=== PATIENT | male | born 1980 | race Caucasian/White ===

== ENCOUNTER 2017-10-21 13:52 | Inpatient (IN) | payer SELFPAY ==
[~2017-10-21] VITALS: Ht 188 cm; Wt 111.0 kg
[~2017-10-21 13:52] MED LIST: BIOFREEZE TOPICAL; CYCL-36 PO; DARV PO; IBUP100S PO; LORT7.5T3 PO; MELO15TA2 PO
[2017-10-21 14:30] VITALS: BP 126/76; PULSE 88; RESP 15; TEMP 98.8; O2SAT 98
--- NOTE | 2017-10-21 15:05 | RADRPT ---
EXAM DATE/TIME: 10/21/2017 14:48 [facility] COMPARISON: No previous studies available for comparison. INDICATIONS : Patient states left hand redness, swelling, and warm to the touch. MEDICAL HISTORY : None. SURGICAL HISTORY : None. ENCOUNTER: Initial ACUITY: 3 days PAIN SCORE: 8/10 LOCATION: Left Forearm FINDINGS: Two view examination of the left forearm demonstrates no evidence of fracture or dislocation. Bony m ineralization is normal. The soft tissue structures are intact. CONCLUSION: Unremarkable examination of the left forearm. Maximus Ulloa Jr., MD on October 21, 2017 at 15:01 Board Certified Radiologist. This report was verified electronically.
--- NOTE | 2017-10-21 15:06 | RADRPT ---
EXAM DATE/TIME: 10/21/2017 14:50 [facility] COMPARISON: No previous studies available for comparison. INDICATIONS : Patient states left arm swelling, redness, and warm to the touch. MEDICAL HISTORY : None. SURGICAL HISTORY : None. ENCOUNTER: Initial ACUITY: 3 days PAIN SCORE: 8/10 LOCATION: Left Hand FINDINGS: Three view examination of the left hand demonstrates no dislocation or fracture. Dorsal soft tissue s welling. No radiopaque foreign body. The carpal bones appear intact. The interphalangeal and metaca rpophalangeal joints are intact. Bony mineralization is normal. CONCLUSION: 1. Dorsal soft tissue swelling. Maximus Ulloa Jr., MD on October 21, 2017 at 15:04 Board Certified Radiologist. This report was verified electronically.
--- NOTE | 2017-10-21 19:38 | PD ---
HPI Chief Complaint: Injury Time Seen by Provider: 19:03 Travel History International Travel<30 days: No Contact w/Intl Traveler<30days: No Traveled to known affect area: No History of Present Illness HPI 37-year-old white male presents emergency department with complaints of left forearm and hand swelling and pain. The patient alleges a trip and fall on Saturday. He states that he had hyperflexed his wrist during the fall. It has become increasingly painful, red and swollen. Patient denies any fever or chills. He denies any IV drug abuse. He denies any numbness or tingling. Up- to-date with immunizations. 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 PFSH Past Medical History Narrative Medical Left biceps tear Blood Disorders: No Cancer: No Cardiovascular Problems: No Diminished Hearing: No Endocrine: No Gastrointestinal Disorders: No Genitourinary: No Immune Disorder: No Implanted Vascular Access Dvce: No Musculoskeletal: No Neurologic: No Psychiatric: No Reproductive: No Respiratory: No Tetanus Vaccination: < 5 Years Past Surgical History Narrative Surgical Reconnection left bicep Abdominal Surgery: No AICD: No Arteriovenous Shunt: No Cardiac Surgery: No Ear Surgery: No Endocrine Surgery: No Eye Surgery: No Genitourinary Surgery: No Gynecologic Surgery: No Insulin Pump: No Joint Replacement: No Neurologic Surgery: No Oral Surgery: No Pacemaker: No Thoracic Surgery: No Other Surgery: No Social History Alcohol Use: Yes (OCC) Tobacco Use: No Substance Use: No Allergies-Medications (Allergen,Severity, Reaction): Coded Allergies: No Known Allergies (Verified Adverse Reaction, Unknown, 10/21/17) Reported Meds & Prescriptions Reported Meds & Active Scripts Active No Active Prescriptions or Reported Medications Review of Systems General / Constitutional: No: Fever Eyes: No: Visual changes HENT: No: Headaches Cardiovascular: No: Chest Pain or Discomfort Respiratory: No: Shortness of Breath Gastrointestinal: No: Abdominal Pain Genitourinary: No: Dysuria Musculoskeletal: Positive: Arthralgias, Limited ROM, Edema, Pain Skin: No Rash Neurologic: No: Weakness Psychiatric: No: Depression Endocrine: No: Polydipsia Hematologic/Lymphatic: No: Easy Bruising Physical Exam Narrative GENERAL: Well-developed, well-nourished in no acute distress. Nontoxic appearing. HEAD: Normocephalic, atraumatic. EYES: Pupils equal round and reactive. Extraocular motions intact. No scleral icterus. No injection or drainage. ENT: TMs clear without erythema. The external auditory canals clear. Nose: clear . Posterior pharynx is pink and moist. No tonsillar edema or exudate. Uvula midline. Airway patent. NECK: Trachea midline.Supple, nontender, moves head freely. No central bony tenderness or spasm. CARDIOVASCULAR: Regular rate and rhythm without murmurs, gallops, or rubs. RESPIRATORY: Clear to auscultation. Breath sounds equal bilaterally. No wheezes , rales, or rhonchi. GASTROINTESTINAL: Abdomen soft, non-tender, nondistended. No hepato-splenomegaly , or palpable masses. No guarding. EXTREMITIES: No clubbing, cyanosis. Examination of left upper extremity reveals moderate swelling from the mid forearm down into the hand. It is red, warm and tender. No fluctuance or pointing. There is no bony tenderness to examination of the hand, wrist, elbow or shoulder. Patient has surgical scar from prior biceps attachment. There is questionable tract rohit in the wrist. BACK: Nontender without deformity or crepitance. No flank tenderness. Data Data Last Documented VS Vital Signs Date Time Temp Pulse Resp B/P (MAP) Pulse Ox O2 Delivery O2 Flow Rate FiO2 10/21/17 14:30 98.8 88 15 126/76 (93) 98 Orders Orders Hand, Complete ([id number]) (10/21/17 ) Forearm (2vws) (10/21/17 ) Complete Blood Count With Diff (10/21/17 19:10) Basic Metabolic Panel (Bmp) (10/21/17 19:10) Blood Culture (10/21/17 19:10) Iv Access Insert/Monitor (10/21/17 19:10) Drug Screen, Random Urine (10/21/17 19:10) Lactic Acid (10/21/17 19:10) Sodium Chlor 0.9% 1000 Ml Inj (Ns 1000 M (10/21/17 21:00) Sodium Chlor 0.9% 1000 Ml Inj (Ns 1000 M (10/21/17 21:00) Vancomycin Inj (Vancomycin Inj) (10/21/17 21:00) Piperacil-Tazo 4.5 Gm Premix (Zosyn 4.5 (10/21/17 21:00) Admit Order (Ed Use Only) (10/21/17 ) Vital Signs (Adult) Q4H (10/21/17 20:54) Diet Npo (10/22/17 Breakfast) Activity Oob With Assistance (10/21/17 20:54) Notify Dr: Other (10/21/17 20:54) Labs Laboratory Tests Test 10/21/17 19:21 White Blood Count 11.2 TH/MM3 Red Blood Count 4.15 MIL/MM3 Hemoglobin 14.7 GM/DL Hematocrit 40.9 % Mean Corpuscular Volume 98.5 FL Mean Corpuscular Hemoglobin 35.3 PG Mean Corpuscular Hemoglobin Concent 35.8 % Red Cell Distribution Width 12.8 % Platelet Count 151 TH/MM3 Mean Platelet Volume 8.0 FL Neutrophils (%) (Auto) 78.9 % Lymphocytes (%) (Auto) 12.2 % Monocytes (%) (Auto) 7.9 % Eosinophils (%) (Auto) 0.6 % Basophils (%) (Auto) 0.4 % Neutrophils # (Auto) 8.9 TH/MM3 Lymphocytes # (Auto) 1.4 TH/MM3 Monocytes # (Auto) 0.9 TH/MM3 Eosinophils # (Auto) 0.1 TH/MM3 Basophils # (Auto) 0.0 TH/MM3 CBC Comment DIFF FINAL Differential Comment Blood Urea Nitrogen 8 MG/DL Creatinine 0.75 MG/DL Random Glucose 124 MG/DL Calcium Level 8.0 MG/DL Sodium Level 137 MEQ/L Potassium Level 3.7 MEQ/L Chloride Level 102 MEQ/L Carbon Dioxide Level 25.8 MEQ/L Anion Gap 9 MEQ/L Estimat Glomerular Filtration Rate 117 ML/MIN Lactic Acid Level 2.1 mmol/L Urine Opiates Screen NEG Urine Barbiturates Screen NEG Urine Amphetamines Screen NEG Urine Benzodiazepines Screen NEG Urine Cocaine Screen NEG Urine Cannabinoids Screen NEG MDM Medical Decision Making Medical Screen Exam Complete: Yes Emergency Medical Condition: Yes Medical Record Reviewed: Yes Interpretation(s) Laboratory Tests Test 10/21/17 19:21 White Blood Count 11.2 TH/MM3 Red Blood Count 4.15 MIL/MM3 Hemoglobin 14.7 GM/DL Hematocrit 40.9 % Mean Corpuscular Volume 98.5 FL Mean Corpuscular Hemoglobin 35.3 PG Mean Corpuscular Hemoglobin Concent 35.8 % Red Cell Distribution Width 12.8 % Platelet Count 151 TH/MM3 Mean Platelet Volume 8.0 FL Neutrophils (%) (Auto) 78.9 % Lymphocytes (%) (Auto) 12.2 % Monocytes (%) (Auto) 7.9 % Eosinophils (%) (Auto) 0.6 % Basophils (%) (Auto) 0.4 % Neutrophils # (Auto) 8.9 TH/MM3 Lymphocytes # (Auto) 1.4 TH/MM3 Monocytes # (Auto) 0.9 TH/MM3 Eosinophils # (Auto) 0.1 TH/MM3 Basophils # (Auto) 0.0 TH/MM3 CBC Comment DIFF FINAL Differential Comment Blood Urea Nitrogen 8 MG/DL Creatinine 0.75 MG/DL Random Glucose 124 MG/DL Calcium Level 8.0 MG/DL Sodium Level 137 MEQ/L Potassium Level 3.7 MEQ/L Chloride Level 102 MEQ/L Carbon Dioxide Level 25.8 MEQ/L Anion Gap 9 MEQ/L Estimat Glomerular Filtration Rate 117 ML/MIN Lactic Acid Level 2.1 mmol/L Urine Opiates Screen NEG Urine Barbiturates Screen NEG Urine Amphetamines Screen NEG Urine Benzodiazepines Screen NEG Urine Cocaine Screen NEG Urine Cannabinoids Screen NEG Differential Diagnosis MDM: High Differential diagnoses: Fracture, sprain, strain, dislocation, contusion, neurovascular injury, IV drug abuse, cellulitis, abscess Narrative Course IV access is obtained. CBC, chemistry, lactic acid, and 2 blood cultures have been ordered. I have asked the patient multiple times regarding potential for IV drug abuse he has adamantly denied this. He contends this is all secondary to a slip and fall. Patient was given vancomycin 20 mg/kg IV, Zosyn 4.5 g IV. 2 L of normal saline bolus. I discussed the clinical findings with the patient. I have advised him that this would require admission to the hospital and IV antibiotics. The patient verbally states understanding and agrees with treatment plan and follow-up. I discussed the case with Dr. Parikh who has agreed to admit the patient. I recommended full admission I do not believe that this patient will be improved significantly enough and 23 hours. This is left forearm and hand cellulitis Sepsis Criteria Sepsis Criteria (SIRS+source): Infect source susp/known Severe Sepsis (+one): Lactate >2 Diagnosis Primary Impression: Left forearm and hand cellulitis Scripts No Active Prescriptions or Reported Meds Condition: Stable Anthony Sandoval Oct 21, 2017 19:38
[2017-10-21 20:08] LABS: AUTOMATED NEUTROPHIL # 8.9 TH/MM3 (1.8-7.7); BASOPHIL % 0.4 % (0.0-2.0); EOSINOPHIL # 0.1 TH/MM3 (0-0.4); EOSINOPHIL % 0.6 % (0.0-4.0); HEMATOCRIT 40.9 % (39.0-51.0); HEMOGLOBIN 14.7 GM/DL (13.0-17.0); LYMPH % 12.2 % (9.0-44.0); LYMPHOCYTE # 1.4 TH/MM3 (1.0-4.8); MEAN CELL VOLUME 98.5 FL (80.0-100.0); MEAN CORPUSCULAR HEMOGLOBIN 35.3 PG (27.0-34.0); MEAN CORPUSCULAR HGB CONC 35.8 % (32.0-36.0); MONO % 7.9 % (0.0-8.0); MONOCYTE # 0.9 TH/MM3 (0-0.9); NEUT % 78.9 % (16.0-70.0); PLATELET COUNT 151 TH/MM3 (150-450); RED BLOOD COUNT 4.15 MIL/MM3 (4.50-5.90); RED CELL DISTRIBUTION WIDTH 12.8 % (11.6-17.2); WHITE BLOOD COUNT 11.2 TH/MM3 (4.0-11.0)
[2017-10-21 20:30] LABS: BICARBONATE 25.8 MEQ/L (21.0-32.0); CREATININE 0.75 MG/DL (0.60-1.30)
[2017-10-21] MEDS ORDERED: LACTULOSE SYRUP 20 GM/30 ML CUP PO PRN (21:00)
[2017-10-21] MEDS ORDERED: BISACODYL 10 MG SUPP RECTAL PRN (21:00)
[2017-10-21] MEDS ORDERED: SODIUM CHLORID 0.9% IV ONE (21:00)
[2017-10-21] MEDS ORDERED: ACETAMINOPHEN 325 MG TAB PO PRN (21:00)
[2017-10-21] MEDS ORDERED: NALOXONE HCL 0.4 MG/ML AMP IV PUSH PRN (21:00)
[2017-10-21] MEDS ORDERED: VANCOMYCIN IV ONE (21:00)
[2017-10-21] MEDS ORDERED: SODIUM CHLOR 0.9% 1000 ML INJ 1,000 ML IV ONE ×2 (21:00)
[2017-10-21] MEDS ORDERED: Vancomycin Consult Pharmacy 1 EA OTHER SCH (21:00)
[2017-10-21] MEDS ORDERED: SENNOSIDES 8.6 MG TAB PO PRN (21:00)
[2017-10-21] MEDS ORDERED: ONDANSETRON HCL 4 MG/2 ML VIAL IVP PRN (21:00)
[2017-10-21] MEDS ORDERED: SODIUM CHLORIDE 0.9% FLUSH 10 ML FLUSH IV FLUSH PRN (21:00)
[2017-10-21] MEDS ORDERED: PIPERACIL-TAZO 4.5 GM PREMIX 100 ML IV ONE (21:00)
[2017-10-21] MEDS ORDERED: MAGNESIUM HYDROXIDE SUSP 30 ML CUP PO PRN (21:00)
[2017-10-21 21:16] VITALS: BP 136/67; PULSE 90; RESP 16; O2SAT 99
[2017-10-21 21:21] VITALS: BP 142/69; PULSE 96; RESP 16; TEMP 99; O2SAT 100
[2017-10-21] MEDS: DOCUSATE SODIUM 50 MG/SENNA 8.6 MG TAB PO SCH (22:15)
[2017-10-21] MEDS: SODIUM CHLORIDE 0.9% FLUSH 10 ML FLUSH IV FLUSH SCH (22:15)
[2017-10-21] MEDS: SODIUM CHLOR 0.9% 1000 ML INJ 1,000 ML IV SCH (22:16)
[2017-10-22] MEDS: PIPERACIL-TAZO 3.375 GM PREMIX 50 ML IV SCH ×4 (02:05→20:22)
--- NOTE | 2017-10-22 03:14 | HHI.HP ---
[facility] No Primary Care Physician Admission Diagnosis Left forearm and hand cellulitis Diagnoses: Travel History International Travel<30 Days: No Contact w/Intl Traveler <30 Da: No Traveled to Known Affected Are: No History of Present Illness 37-year-old male with no significant past medical history presents to the emergency department for evaluation of left handed pain and swelling. The patient reports that the swelling and redness began around his left wrist on Saturday and has been progressively worsening since that time. He is able to flex all 5 digits but has difficulty bending at the wrist secondary to swelling and pain. He denies any fever/chills. Denies chest pain or shortness of breath. No nausea/vomiting/diarrhea. No cough or congestion. Patient denies any recent trauma to the area or IV drug use. Review of Systems Except as stated in HPI: all other systems reviewed are Neg Past Family Social History Past Medical History None Past Surgical History Left biceps repair Reported Medications Reported Meds & Active Scripts Active No Active Prescriptions or Reported Medications Allergies: Coded Allergies: No Known Allergies (Verified Allergy, Unknown, 10/21/17) Family History Negative for CAD/DM Social History Occasional tobacco. Occasional alcohol. Denies all illicit drugs. Physical Exam Vital Signs Vital Signs Date Time Temp Pulse Resp B/P (MAP) Pulse Ox O2 Delivery O2 Flow Rate FiO2 10/21/17 21:21 99.0 96 16 142/69 (93) 100 10/21/17 21:16 90 16 136/67 (90) 99 Room Air 10/21/17 14:30 98.8 88 15 126/76 (93) 98 Physical Exam GENERAL: male lying in bed SKIN: Erythema and edema that extends from the fingers of the left hand to the elbow. No associated fluctuance or induration. No areas of drainage. HEAD: Atraumatic. Normocephalic. No temporal or scalp tenderness. EYES: Pupils equal round and reactive. Extraocular motions intact. No scleral icterus. No injection or drainage. ENT: Nose without bleeding, purulent drainage or septal hematoma. Throat without erythema, tonsillar hypertrophy or exudate. Uvula midline. Airway patent. NECK: Trachea midline. No JVD or lymphadenopathy. Supple, nontender, no meningeal signs. CARDIOVASCULAR: Regular rate and rhythm without murmurs, gallops, or rubs. RESPIRATORY: Clear to auscultation. Breath sounds equal bilaterally. No wheezes , rales, or rhonchi. GASTROINTESTINAL: Abdomen soft, non-tender, nondistended. No hepato-splenomegaly , or palpable masses. No guarding. MUSCULOSKELETAL: Extremities without clubbing, cyanosis, or edema. No joint tenderness, effusion, or edema noted. No calf tenderness. NEUROLOGICAL: Awake and alert. Cranial nerves II through XII intact. Motor and sensory grossly within normal limits. Normal speech. Laboratory Laboratory Tests Test 10/21/17 19:21 White Blood Count 11.2 Red Blood Count 4.15 Hemoglobin 14.7 Hematocrit 40.9 Mean Corpuscular Volume 98.5 Mean Corpuscular Hemoglobin 35.3 Mean Corpuscular Hemoglobin Concent 35.8 Red Cell Distribution Width 12.8 Platelet Count 151 Mean Platelet Volume 8.0 Neutrophils (%) (Auto) 78.9 Lymphocytes (%) (Auto) 12.2 Monocytes (%) (Auto) 7.9 Eosinophils (%) (Auto) 0.6 Basophils (%) (Auto) 0.4 Neutrophils # (Auto) 8.9 Lymphocytes # (Auto) 1.4 Monocytes # (Auto) 0.9 Eosinophils # (Auto) 0.1 Basophils # (Auto) 0.0 CBC Comment DIFF FINAL Differential Comment Blood Urea Nitrogen 8 Creatinine 0.75 Random Glucose 124 Calcium Level 8.0 Sodium Level 137 Potassium Level 3.7 Chloride Level 102 Carbon Dioxide Level 25.8 Anion Gap 9 Estimat Glomerular Filtration Rate 117 Lactic Acid Level 2.1 Urine Opiates Screen NEG Urine Barbiturates Screen NEG Urine Amphetamines Screen NEG Urine Benzodiazepines Screen NEG Urine Cocaine Screen NEG Urine Cannabinoids Screen NEG Date/Time Source Procedure Growth Status 10/21/17 19:21 Blood Peripheral Aerobic Blood Culture Pending Received 10/21/17 19:21 Blood Peripheral Anaerobic Blood Culture Pending Received Result Diagram: 10/21/17192010/21/171920 Caprini VTE Risk Assessment Caprini VTE Risk Assessment: No/Low Risk (score <= 1) Caprini Risk Assessment Model Point Value = 1 Point Value = 2 Point Value = 3 Point Value = 5 Age 41-60 Minor surgery BMI > 25 kg/m2 Swollen legs Varicose veins or History of unexplained or recurrent spontaneous Oral contraceptives or hormone replacement Sepsis (< 1 month) Serious lung disease, including pneumonia (< 1 month) Abnormal pulmonary function Acute myocardial infarction Congestive heart failure (< 1 month) History of inflammatory bowel disease Medical patient at bed rest Age 61-74 Arthroscopic surgery Major open surgery (> 45 min) Laparoscopic surgery (> 45 min) Malignancy Confined to bed (> 72 hours) Immobilizing plaster cast Central venous access Age >= 75 History of VTE Family history of VTE Factor V Leiden Prothrombin [id number] Lupus anticoagulant Anticardiolipin antibodies Elevated serum homocysteine Heparin-induced thrombocytopenia Other congenital or acquired thrombophilia Stroke (< 1 month) Elective arthroplasty Hip, pelvis, or leg fracture Acute spinal cord injury (< 1 month) Prophylaxis Regimen Total Risk Factor Score Risk Level Prophylaxis Regimen 0-1 Low Early ambulation 2 Moderate Order ONE of the following: *Sequential Compression Device (SCD) *Heparin 5000 units SQ BID 3-4 Higher Order ONE of the following medications: *Heparin 5000 units SQ TID *Enoxaparin/Lovenox 40 mg SQ daily (WT < 150 kg, CrCl > 30 mL/min) *Enoxaparin/Lovenox 30 mg SQ daily (WT < 150 kg, CrCl > 10-29 mL/min) *Enoxaparin/Lovenox 30 mg SQ BID (WT < 150 kg, CrCl > 30 mL/min) AND/OR *Sequential Compression Device (SCD) 5 or more Highest Order ONE of the following medications: *Heparin 5000 units SQ TID (Preferred with Epidurals) *Enoxaparin/Lovenox 40 mg SQ daily (WT < 150 kg, CrCl > 30 mL/min) *Enoxaparin/Lovenox 30 mg SQ daily (WT < 150 kg, CrCl > 10-29 mL/min) *Enoxaparin/Lovenox 30 mg SQ BID (WT < 150 kg, CrCl > 30 mL/min) AND *Sequential Compression Device (SCD) Assessment and Plan Assessment and Plan Assessment/plan: 1. Left hand/forearm cellulitis X-ray of the left hand and forearm without acute process Lactic acid elevated at 2.1, repeat pending Cannot exclude tenosynovitis, MRI pending Vancomycin/Zosyn IV fluid hydration Blood cultures pending Monitor for signs of sepsis FEN Regular diet Electrolytes: Monitor and replete when necessary NS at 125 cc/hr SCDs Physician Certification 2 Midnight Certification Type: Admission for Inpatient Services Order for Inpatient Services The services are ordered in accordance with Medicare regulations or non- Medicare payer requirements, as applicable. In the case of services not specified as inpatient-only, they are appropriately provided as inpatient services in accordance with the 2-midnight benchmark. Estimated LOS (days): 2 2 days is the estimated time the patient will need to remain in the hospital, assuming treatment plan goals are met and no additional complications. Post-Hospital Plan: Not yet determined Radha Parikh MD Oct 22, 2017 03:14
[2017-10-22 04:01] LABS: AUTOMATED NEUTROPHIL # 6.9 TH/MM3 (1.8-7.7); BASOPHIL % 0.2 % (0.0-2.0); EOSINOPHIL # 0.1 TH/MM3 (0-0.4); EOSINOPHIL % 1.1 % (0.0-4.0); HEMATOCRIT 37.5 % (39.0-51.0); HEMOGLOBIN 13.2 GM/DL (13.0-17.0); LYMPH % 16.9 % (9.0-44.0); LYMPHOCYTE # 1.6 TH/MM3 (1.0-4.8); MEAN CELL VOLUME 99.2 FL (80.0-100.0); MEAN CORPUSCULAR HEMOGLOBIN 34.9 PG (27.0-34.0); MEAN CORPUSCULAR HGB CONC 35.2 % (32.0-36.0); MEAN PLATELET VOLUME 7.9 FL (7.0-11.0); MONO % 8.3 % (0.0-8.0); MONOCYTE # 0.8 TH/MM3 (0-0.9); NEUT % 73.5 % (16.0-70.0); PLATELET COUNT 147 TH/MM3 (150-450); RED BLOOD COUNT 3.78 MIL/MM3 (4.50-5.90); RED CELL DISTRIBUTION WIDTH 12.8 % (11.6-17.2); WHITE BLOOD COUNT 9.4 TH/MM3 (4.0-11.0)
[2017-10-22 04:17] LABS: BICARBONATE 26.3 MEQ/L (21.0-32.0); CALCIUM 7.3 MG/DL (8.5-10.1); CREATININE 0.69 MG/DL (0.60-1.30)
[2017-10-22 04:33] LABS: CALCIUM-PROTEIN CORRECTED 7.9 MG/DL (8.5-10.1)
[2017-10-22 04:55] VITALS: BP 124/70; PULSE 97; RESP 16; TEMP 99.3; O2SAT 97
[2017-10-22] MEDS: SODIUM CHLOR 0.9% 1000 ML INJ 1,000 ML IV SCH ×3 (04:55→21:22)
[2017-10-22 08:00] VITALS: BP 108/62; PULSE 63; RESP 16; TEMP 98.4; O2SAT 97
[2017-10-22] MEDS ORDERED: GADODIAMIDE PF 287 MG/ML 20 ML VIAL (for RAD MRI) IVCONTRAST ONE (08:39)
[2017-10-22] MEDS: SODIUM CHLORIDE 0.9% FLUSH 10 ML FLUSH IV FLUSH SCH ×2 (08:58→20:22)
[2017-10-22] MEDS: DOCUSATE SODIUM 50 MG/SENNA 8.6 MG TAB PO SCH ×2 (08:58→20:22)
[2017-10-22] MEDS ORDERED: VANCOMYCIN INJ 1,250 MG in SODIUM CHLOR 0.9% 250 ML INJ 250 ML IV SCH (09:00)
--- NOTE | 2017-10-22 09:18 | RADRPT ---
EXAM DATE/TIME: 10/22/2017 08:05 [facility] COMPARISON: HAND LEFT COMPLETE ([id number]), October 21, 2017, 14:50. INDICATIONS : Cellulitis. CONTRAST: 20 cc Omniscan (gadodiamide) IV MEDICAL HISTORY : None. SURGICAL HISTORY : None. ENCOUNTER: Initial ACUITY: 3 day PAIN SCORE: 5/10 LOCATION: Left hand TECHNIQUE: Multiplanar, multisequence MRI examination was performed without contrast and after the intravenous a dministration of gadolinium. FINDINGS: BONE/CARTILAGE: Bone marrow signal is homogeneous. Articular cartilage signal is within normal limits. A few tiny sub chondral cystsare seen in the distal second and third metacarpals. TENDONS: All of the visualized tendons are intact. MISCELLANEOUS: There is diffuse nonspecific soft tissue swelling and edema predominantly along the dorsum of the rees d. There is a complex fluid collection along the dorsum at the level of the rest measuring 2.6 x 1.5 cm suggestive of soft tissue abscess. POST-CONTRAST: There is enhancement in the subcutaneous soft tissues along the dorsum of the hand characteristic of an inflammatory process such as cellulitis. CONCLUSION: 1. Diffuse nonspecific soft tissue swelling and edema are gone along the dorsum of the hand and wrist . This is characteristic of prominent cellulitis. There is a complex fluid collection measuring 2.6 x 1.5 cm on the dorsum of the wrist level. This is suggestive of a soft tissue abscess. 2. There is normal signal within the bony structures. There is no evidence to suggest osteomyelitis. Jim Eduardo MD on October 22, 2017 at 9:11 Board Certified Radiologist. This report was verified electronically.
[2017-10-22] MEDS: VANCOMYCIN INJ 2,000 MG in SODIUM CHLORID 0.9% 500 ML INJ 500 ML IV SCH ×2 (09:29→21:21)
[2017-10-22 12:00] VITALS: BP 112/60; PULSE 76; RESP 16; TEMP 99; O2SAT 97
--- NOTE | 2017-10-22 13:24 | HHI.PR ---
Subjective Remarks Follow up for left hand cellulitis/abscess. The patient reports minimal improvement of left hand/wrist erythema, edema, and pain overnight. Denies fevers/chills. Again denies any IVDU. 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 Denies any other medical complaints at this time including no chest pain, palpitations, shortness of breath, abdominal or urinary complaints. Objective Vitals Vital Signs Date Time Temp Pulse Resp B/P (MAP) Pulse Ox O2 Delivery O2 Flow Rate FiO2 10/22/17 12:00 99.0 76 16 112/60 (77) 97 10/22/17 08:00 98.4 63 16 108/62 (77) 97 10/22/17 04:55 99.3 97 16 124/70 (88) 97 10/21/17 21:21 99.0 96 16 142/69 (93) 100 10/21/17 21:16 90 16 136/67 (90) 99 Room Air 10/21/17 14:30 98.8 88 15 126/76 (93) 98 Result Diagram: 10/22/17 0344 10/22/17 0344 Imaging Last Impressions Hand MRI 10/22/17 0000 Signed Impressions: Service Date/Time: Sunday, October 22, 2017 08:05 - CONCLUSION: 1. Diffuse nonspecific soft tissue swelling and edema are gone along the dorsum of the hand and wrist. This is characteristic of prominent cellulitis. There is a complex fluid collection measuring 2.6 x 1.5 cm on the dorsum of the wrist level. This is suggestive of a soft tissue abscess. 2. There is normal signal within the bony structures. There is no evidence to suggest osteomyelitis. Jim Eduardo MD Radius/Ulna X-Ray 10/21/17 0000 Signed Impressions: Service Date/Time: Saturday, October 21, 2017 14:48 - CONCLUSION: Unremarkable examination of the left forearm. Maximus Ulloa Jr., MD Hand X-Ray 10/21/17 0000 Signed Impressions: Service Date/Time: Saturday, October 21, 2017 14:50 - CONCLUSION: 1. Dorsal soft tissue swelling. Maximus Ulloa Jr., MD Objective Remarks GENERAL: Well-nourished, well-developed middle aged male patient in [facility]. SKIN: Warm and dry. Left dorsal hand/wrist with significant edema/erythema/ warmth that extends into the proximal forearm. HEENT: Normocephalic. Atraumatic.Pupils equal and round. Mucous membranes pink and moist. CARDIOVASCULAR: Regular rate and rhythm. S1, S2 noted. No murmur appreciated. RESPIRATORY: No accessory muscle use. Clear to auscultation. Breath sounds equal bilaterally. GASTROINTESTINAL: Abdomen soft, non-tender, nondistended. Normoactive bowel sounds x4. MUSCULOSKELETAL: No obvious deformities. Left hand/wrist as above. Limited ROM of left wrist secondary to edema/pain. NEUROLOGICAL: Awake and alert. No obvious cranial nerve deficits. Motor grossly within normal limits. Normal speech. PSYCHIATRIC: Appropriate mood and affect; insight and judgment normal. Medications and IVs Current Medications Medications (Trade) Dose Ordered Sig/Hina Route Start Time Stop Time Status Last Admin Piperacillin Sod/ Tazobactam Sod 50 ml @ 100 mls/hr Q6H IV 10/22/17 03:00 10/22/17 14:03 Pharmacy Profile Note 0 ml @ 0 mls/hr UNSCH OTHER 10/21/17 21:00 Sodium Chloride 1,000 ml @ 125 mls/hr Q8H IV 10/21/17 20:55 10/22/17 14:02 (NS Flush) 2 ml UNSCH PRN IV FLUSH 10/21/17 21:00 (NS Flush) 2 ml BID IV FLUSH 10/21/17 21:00 10/21/17 22:15 (Tylenol) 650 mg Q4H PRN PO 10/21/17 21:00 (Zofran Inj) 4 mg Q6H PRN IVP 10/21/17 21:00 (Narcan Inj) 0.4 mg UNSCH PRN IV PUSH 10/21/17 21:00 (Carmen-Colace) 1 tab BID PO 10/21/17 21:00 10/21/17 22:15 (Milk Of Magnesia Liq) 30 ml Q12H PRN PO 10/21/17 21:00 (Senokot) 17.2 mg Q12H PRN PO 10/21/17 21:00 (Dulcolax Supp) 10 mg DAILY PRN RECTAL 10/21/17 21:00 (Lactulose Liq) 30 ml DAILY PRN PO 10/21/17 21:00 Vancomycin HCl 2000 mg/Sodium Chloride 520 ml @ 250 mls/hr Q12H IV 10/22/17 10:00 10/22/17 09:29 Miscellaneous Information SPECIFIC LAB TO BE SUZANNE... ONCE ONCE .XX 10/23/17 09:45 10/23/17 09:46 A/P Problem List: (1) Abscess of left hand ICD Code: L02.512 - Cutaneous abscess of left hand Assessment and Plan 37-year-old male with no significant past medical history presents to the emergency department for evaluation of left handed pain and swelling. Left Hand/Wrist Cellulitis with Abscess: Left hand/forearm xrays remarkable for dorsal soft tissue. LUE MRI showed diffuse soft tissue edema along dorsal hand/ wrist; complex fluid collection 2.6x1.5cm at dorsal wrist suggestive of soft tissue abscess; no evidence of osteomyelitis. WBC 11.2K, lactate 2.1. -Blood culture with NGTD -Continue antibiotics with IV Vanco/Zosyn -Give IVF hydration -Pain control with [place] prn, IV morphine prn breakthrough pain -[employer] consult to elevate LUE with IV pole/sling -Keep NPO for now -Consult hand surgery DVT Prophylaxis: teds/SCDs; avoid chemoprophylaxis until evaluated by hand surgeon Discharge Planning Admit to inpatient. Hand surgery consultation pending, likely needs I&D. Carley Lama PA-C Oct 22, 2017 1:24 pm
[2017-10-22 16:00] VITALS: BP 130/73; PULSE 66; RESP 18; TEMP 99.4; O2SAT 98
[2017-10-22] MEDS ORDERED: MORPHINE SULFATE 2 MG/ML INJ IV PUSH PRN (16:00)
[2017-10-22] MEDS ORDERED: LACTATED RINGER'S 1000 ML IV PRN (16:00)
[2017-10-22] MEDS ORDERED: SODIUM CHLORID 0.9% 500 ML IV PRN (16:00)
[2017-10-22] MEDS ORDERED: ACETAMINOPHEN 325 MG TAB PO PRN (16:00)
[2017-10-22] MEDS ORDERED: METOPROLOL TARTRATE 25 MG TAB PO PRN (16:00)
[2017-10-22] MEDS ORDERED: CHLORHEXIDINE GLUCONATE 2 % 1 PACK (2 CLOTHS) TOPICAL PRN (16:00)
[2017-10-22] MEDS ORDERED: INSULIN HUMAN REGULAR 1,000 UNITS/10 ML VIAL SQ PRN (16:00)
[2017-10-22] MEDS ORDERED: POVIDONE IODINE 5% (ANTISEPSIS KIT) 4 APPLICATIONS EACH NARE PRN (16:00)
[2017-10-22 19:58] VITALS: BP 145/79; PULSE 60; RESP 16; TEMP 98.7; O2SAT 96
[2017-10-22] MEDS: ACETAMINOPHEN/HYDROcodone 325 MG/5 MG TAB PO PRN (20:21)
--- NOTE | 2017-10-22 21:49 | PD.ORT.PN ---
Objective Vitals Vital Signs Date Time Temp Pulse Resp B/P (MAP) Pulse Ox O2 Delivery O2 Flow Rate FiO2 10/22/17 19:58 98.7 60 16 145/79 (101) 96 10/22/17 16:00 99.4 66 18 130/73 (92) 98 10/22/17 12:00 99.0 76 16 112/60 (77) 97 10/22/17 08:00 98.4 63 16 108/62 (77) 97 10/22/17 04:55 99.3 97 16 124/70 (88) 97 I/O 10/21/17 10/21/17 10/21/17 10/22/17 10/22/17 10/22/17 07:00 15:00 23:00 07:00 15:00 23:00 Intake Total 240 ml Balance 240 ml Intake Oral 240 ml # Voids 4 # Bowel Movements 1 Result Diagram: 10/22/17 0344 10/22/17 0344 Imaging Last 24 hours Impressions Hand MRI 10/22/17 0000 Signed Impressions: Service Date/Time: Sunday, October 22, 2017 08:05 - CONCLUSION: 1. Diffuse nonspecific soft tissue swelling and edema are gone along the dorsum of the hand and wrist. This is characteristic of prominent cellulitis. There is a complex fluid collection measuring 2.6 x 1.5 cm on the dorsum of the wrist level. This is suggestive of a soft tissue abscess. 2. There is normal signal within the bony structures. There is no evidence to suggest osteomyelitis. Jim Eduardo MD Assessment & Plan Assessment and Plan Please see full dictated consult note. Patient scheduled for OR tonight 10/22 but currently still awaiting OR time and informed by OR case may have to be delayed until tomorrow. Will continue to follow. Recommend continued IV Ab, elevation, and incision and drainage left wrist Rashida Bennett MD Oct 22, 2017 21:49
--- NOTE | 2017-10-22 22:03 | MB ---
cc: Rashida Bennett MD DATE OF CONSULT: 10/22/2017 REASON FOR CONSULTATION: Swelling, left wrist. HISTORY OF PRESENT ILLNESS: Mr. Block is a 37-year-old right hand dominant male who states he works in construction and states that he fell several days ago and had pain and swelling of the left wrist. He denies any problems prior with the left wrist. He had left distal biceps repair in the past. He denies any paresthesias. He reports some improvement on the IV antibiotics. PAST MEDICAL HISTORY: He denies. PAST SURGICAL HISTORY: Left biceps repair. SOCIAL HISTORY: He endorses alcohol use. Denies any tobacco or drug use. ALLERGIES: NO KNOWN DRUG ALLERGIES. PHYSICAL EXAMINATION: GENERAL: The patient is alert and oriented. EXTREMITIES: Examination of the left upper extremity shows erythema over the wrist. Minimal pain with passive range of motion of the wrist. Fluctuance over the dorsum of the wrist. Patient is able to flex and extend his fingers. Sensation intact in the medial, ulnar, radiation distribution. Two plus radial pulse. VITAL SIGNS: Stable. White count 11.2. MRI shows abscess dorsally over the wrist. X-rays show no evidence of fracture. ASSESSMENT AND PLAN: A 37-year-old right hand dominant male with a several-day history of swelling over the dorsum of the wrist from an unknown mechanism. This is likely unrelated to the fall and may be related to drug use or an accidental puncture. At this time, I recommend incision and drainage of the abscess as soon as possible. Currently we are awaiting for traumas to clear in the operating room. In the meantime, the patient will stay on IV antibiotics and elevate the hand. Rashida Bennett MD SE/FERCHO , 09:48 PM , 10:02 PM VIKY
[2017-10-23 01:36] VITALS: BP 117/74; PULSE 63; RESP 14; TEMP 97.8; O2SAT 97
[2017-10-23] MEDS: ACETAMINOPHEN/HYDROcodone 325 MG/5 MG TAB PO PRN (01:59)
[2017-10-23] MEDS: PIPERACIL-TAZO 3.375 GM PREMIX 50 ML IV SCH ×4 (02:03→21:37)
[2017-10-23 07:21] LABS: BASOPHIL % 0.3 % (0.0-2.0); EOSINOPHIL # 0.2 TH/MM3 (0-0.4); EOSINOPHIL % 2.3 % (0.0-4.0); HEMATOCRIT 39.1 % (39.0-51.0); HEMOGLOBIN 13.6 GM/DL (13.0-17.0); LYMPHOCYTE # 1.7 TH/MM3 (1.0-4.8); MEAN CELL VOLUME 100.7 FL (80.0-100.0); MEAN CORPUSCULAR HEMOGLOBIN 34.9 PG (27.0-34.0); MEAN CORPUSCULAR HGB CONC 34.7 % (32.0-36.0); MEAN PLATELET VOLUME 8.5 FL (7.0-11.0); MONO % 8.8 % (0.0-8.0); MONOCYTE # 0.7 TH/MM3 (0-0.9); NEUT % 65.6 % (16.0-70.0); PLATELET COUNT 160 TH/MM3 (150-450); RED BLOOD COUNT 3.88 MIL/MM3 (4.50-5.90); RED CELL DISTRIBUTION WIDTH 12.6 % (11.6-17.2); WHITE BLOOD COUNT 7.6 TH/MM3 (4.0-11.0)
[2017-10-23 07:57] VITALS: BP 124/62; PULSE 56; RESP 18; TEMP 97.9; O2SAT 97
[2017-10-23 08:00] LABS: CALCIUM 8.2 MG/DL (8.5-10.1); CREATININE 0.65 MG/DL (0.60-1.30); MAGNESIUM 2.1 MG/DL (1.5-2.5)
[2017-10-23] MEDS: DOCUSATE SODIUM 50 MG/SENNA 8.6 MG TAB PO SCH ×2 (08:10→21:00)
[2017-10-23] MEDS ORDERED: PHARMACY ORDERED LAB ONE (09:45)
[2017-10-23] MEDS: SODIUM CHLOR 0.9% 1000 ML INJ 1,000 ML IV SCH ×2 (10:33→21:37)
[2017-10-23] MEDS: SODIUM CHLORIDE 0.9% FLUSH 10 ML FLUSH IV FLUSH SCH ×2 (10:33→21:00)
[2017-10-23] MEDS: VANCOMYCIN INJ 2,000 MG in SODIUM CHLORID 0.9% 500 ML INJ 500 ML IV SCH (10:33)
[2017-10-23 11:33] VITALS: BP 118/69; PULSE 59; RESP 18; TEMP 98; O2SAT 97
--- NOTE | 2017-10-23 11:49 | HHI.PR ---
Subjective Remarks Follow-up left wrist cellulitis/abscess. Currently n.p.o. awaiting surgery discussed with nursing Objective Vitals Vital Signs Date Time Temp Pulse Resp B/P (MAP) Pulse Ox O2 Delivery O2 Flow Rate FiO2 10/23/17 11:33 98.0 10/23/17 11:33 98.0 59 18 118/69 (85) 97 10/23/17 07:57 97.9 56 18 124/62 (82) 97 10/23/17 01:36 97.8 63 14 117/74 (88) 97 10/22/17 19:58 98.7 60 16 145/79 (101) 96 10/22/17 16:00 99.4 66 18 130/73 (92) 98 10/22/17 12:00 99.0 76 16 112/60 (77) 97 I/O 10/22/17 10/22/17 10/22/17 10/23/17 10/23/17 10/23/17 06:59 14:59 22:59 06:59 14:59 22:59 Intake Total 240 ml 30 ml Balance 240 ml 30 ml Intake Oral 240 ml 30 ml # Voids 4 3 # Bowel Movements 1 Result Diagram: 10/23/17 0603 10/23/17 0603 Imaging Last Impressions Hand MRI 10/22/17 0000 Signed Impressions: Service Date/Time: Sunday, October 22, 2017 08:05 - CONCLUSION: 1. Diffuse nonspecific soft tissue swelling and edema are gone along the dorsum of the hand and wrist. This is characteristic of prominent cellulitis. There is a complex fluid collection measuring 2.6 x 1.5 cm on the dorsum of the wrist level. This is suggestive of a soft tissue abscess. 2. There is normal signal within the bony structures. There is no evidence to suggest osteomyelitis. Jim Eduardo MD Radius/Ulna X-Ray 10/21/17 0000 Signed Impressions: Service Date/Time: Saturday, October 21, 2017 14:48 - CONCLUSION: Unremarkable examination of the left forearm. Maximus Ulloa Jr., MD Hand X-Ray 10/21/17 0000 Signed Impressions: Service Date/Time: Saturday, October 21, 2017 14:50 - CONCLUSION: 1. Dorsal soft tissue swelling. Maximus Ulloa Jr., MD Objective Remarks GENERAL: Well-nourished, well-developed middle aged male patient in NAD. SKIN: Warm and dry. Left dorsal hand/wrist with significant edema/erythema/ warmth that extends into the proximal forearm. CARDIOVASCULAR: Regular rate and rhythm. S1, S2 noted. No murmur appreciated. RESPIRATORY: No accessory muscle use. Clear to auscultation. Breath sounds equal bilaterally. GASTROINTESTINAL: Abdomen soft, non-tender, nondistended. Normoactive bowel sounds x4. MUSCULOSKELETAL: No obvious deformities. Left hand/wrist as above. Limited ROM of left wrist secondary to edema/pain. NEUROLOGICAL: Awake and alert. No obvious cranial nerve deficits. Motor grossly within normal limits. Normal speech. A/P Problem List: (1) Abscess of left hand ICD Code: L02.512 - Cutaneous abscess of left hand Assessment and Plan 37-year-old male with no significant past medical history presents to the emergency department for evaluation of left handed pain and swelling. Left Hand/Wrist Cellulitis with Abscess: Left hand/forearm xrays remarkable for dorsal soft tissue. LUE MRI showed diffuse soft tissue edema along dorsal hand/ wrist; complex fluid collection 2.6x1.5cm at dorsal wrist suggestive of soft tissue abscess; no evidence of osteomyelitis. WBC 11.2K, lactate 2.1. Denies IVDA. UDS negative -Blood culture with NGTD -Continue antibiotics with IV Vanco/Zosyn -Give IVF hydration -Pain control with [place] prn, IV morphine prn breakthrough pain -[employer] consult to elevate LUE with IV pole/sling -Keep NPO for now -Consult hand surgery for I&D today DVT Prophylaxis: teds/SCDs; avoid chemoprophylaxis until evaluated by hand surgeon Deny Montemayor MD Oct 23, 2017 11:49
[2017-10-23] MEDS ORDERED: LIDOCAINE HCL 1% PF 5 ML SYRINGE OTHER ONE (12:00)
[2017-10-23] MEDS ORDERED: ONDANSETRON HCL 4 MG/2 ML VIAL IV PUSH ONE (12:00)
[2017-10-23] MEDS ORDERED: PROPOFOL 200 MG/20 ML AMP IV ONE (12:00)
[2017-10-23] MEDS ORDERED: LIDOCAINE HCL 2% 50 ML VIAL ONE (16:02)
[2017-10-23] MEDS ORDERED: GELFOAM SIZE 100 ONE (17:43)
[2017-10-23] MEDS ORDERED: GELATIN 12 MM/7 MM FOAM ONE (17:43)
[2017-10-23] MEDS ORDERED: THROMBIN (TOPICAL) 5,000 UNIT VIAL ONE (17:43)
[2017-10-23] MEDS ORDERED: DO NOT ADM ANY ANTICOAGULANT DRUGS PRN (18:24)
[2017-10-23] MEDS ORDERED: MIDAZOLAM HCL 2 MG/2 ML VIAL ONE (18:40)
[2017-10-23] MEDS ORDERED: *morphine SULFATE 10 MG/ML PERIprocedure ONLY ONE (18:56)
--- NOTE | 2017-10-23 19:19 | PD.ORT.PN ---
Subjective Subjective Remarks Patient reports pain controlled Objective Vitals Vital Signs Date Time Temp Pulse Resp B/P (MAP) Pulse Ox O2 Delivery O2 Flow Rate FiO2 10/23/17 11:33 98.0 10/23/17 11:33 98.0 59 18 118/69 (85) 97 10/23/17 07:57 97.9 56 18 124/62 (82) 97 10/23/17 01:36 97.8 63 14 117/74 (88) 97 10/22/17 19:58 98.7 60 16 145/79 (101) 96 I/O 10/22/17 10/22/17 10/22/17 10/23/17 10/23/17 10/23/17 07:00 15:00 23:00 07:00 15:00 23:00 Intake Total 240 ml 30 ml 350 ml Output Total 200 ml Balance 240 ml 30 ml 150 ml Intake Oral 240 ml 30 ml Other 350 ml Output Estimated Blood Loss 200 ml # Voids 4 3 # Bowel Movements 1 Result Diagram: 10/23/17 0603 10/23/17 0603 Imaging Last 24 hours Impressions Hand MRI 10/22/17 0000 Signed Impressions: Service Date/Time: Sunday, October 22, 2017 08:05 - CONCLUSION: 1. Diffuse nonspecific soft tissue swelling and edema are gone along the dorsum of the hand and wrist. This is characteristic of prominent cellulitis. There is a complex fluid collection measuring 2.6 x 1.5 cm on the dorsum of the wrist level. This is suggestive of a soft tissue abscess. 2. There is normal signal within the bony structures. There is no evidence to suggest osteomyelitis. Jim Eduardo MD Objective Remarks Dressing in place, fascial drain in place, sitlt m/u/r, 2+ radial pulse Assessment & Plan Assessment and Plan 37yM POD0 s/p I&D left wrist/forearm -Significant purulent drainage intraop but not involving wrist joint, also significant oozing intraop, follow cultures and labs, fascial drain placed to bulb suction -Elevate left wrist Rashida Bennett MD Oct 23, 2017 19:19
[2017-10-23 20:04] VITALS: BP 120/64; PULSE 63; RESP 16; TEMP 98.5; O2SAT 99
--- NOTE | 2017-10-23 20:54 | MP ---
cc: Rashida Bennett MD DATE OF OPERATION: 10/23/2017 PREOPERATIVE DIAGNOSIS: Abscess dorsum left wrist and forearm. POSTOPERATIVE DIAGNOSIS: Abscess dorsum left wrist and forearm. PROCEDURE: Incision and drainage deep abscess left wrist and forearm involving the extensor tendon sheaths of the left wrist. SURGEON: Rashida Bennett MD ANESTHESIA: General. TOURNIQUET: 20 minutes at 250 mmHg. SPECIMEN: Cultures. DRAINS: One fascial drain. INDICATIONS FOR PROCEDURE: Anthony Block is a 37-year-old male who presented with significant abscess or the dorsum of the left wrist. This was confirmed on MRI. The patient agreed to proceed with surgical intervention. Risks were explained not limited to wound complications, infection, sepsis, stiffness, pain, need for additional surgeries on the hand and he elected to proceed. DESCRIPTION OF PROCEDURE: The patient was identified in the preoperative holding area and correct extremity was marked. The patient was taken to the operating room where anesthesia was induced. Left upper extremity was prepped and draped in normal sterile fashion. Incision was made over the dorsum of the wrist. There was significant purulence which was debrided. This area was irrigated with 2 liters of antibiotic saline. The extensor tendons remained intact. This did not communicate within the deep wrist joint. There was significant venous bleeding after the tourniquet was released so Gelfoam was placed. This was closed over a drain. I will follow the cultures. The patient will remain admitted. I also recommended additional blood work including PT/INR. Rashida Bennett MD [facility]/rt , 08:16 PM , 08:53 PM [facility] NETWORKSingh
[2017-10-23 21:27] LABS: INTERNATIONAL NORMALIZED RATIO 1.1 RATIO; PROTHROMBIN TIME - PATIENT 10.9 SEC (9.8-11.6)
[2017-10-24] MEDS: VANCOMYCIN INJ 2,000 MG in SODIUM CHLORID 0.9% 500 ML INJ 500 ML IV SCH ×2 (00:02→10:24)
[2017-10-24 03:48] VITALS: BP 112/67; PULSE 61; RESP 16; TEMP 98.2; O2SAT 95
[2017-10-24] MEDS: SODIUM CHLOR 0.9% 1000 ML INJ 1,000 ML IV SCH ×2 (03:59→17:47)
[2017-10-24] MEDS: PIPERACIL-TAZO 3.375 GM PREMIX 50 ML IV SCH ×4 (03:59→21:56)
[2017-10-24 07:28] LABS: CREATININE 0.75 MG/DL (0.60-1.30)
[2017-10-24 08:16] VITALS: BP 118/55; PULSE 45; RESP 18; TEMP 97.7; O2SAT 97
--- NOTE | 2017-10-24 08:28 | HHI.PR ---
Subjective Remarks Follow-up left upper extremity infection. Pain managed with current medications. Vital signs shows bradycardia, weakness, syncope chest pain and shortness of breath. Discussed with nursing Objective Vitals Vital Signs Date Time Temp Pulse Resp B/P (MAP) Pulse Ox O2 Delivery O2 Flow Rate FiO2 10/24/17 08:16 97.7 45 18 118/55 (76) 97 10/24/17 03:48 98.2 61 16 112/67 (82) 95 10/23/17 20:04 98.5 63 16 120/64 (82) 99 10/23/17 19:00 64 14 120/68 (85) 99 Room Air 10/23/17 18:45 56 17 127/63 (84) 98 Room Air 10/23/17 18:30 97.0 90 17 126/69 (88) 100 Room Air 10/23/17 11:33 98.0 10/23/17 11:33 98.0 59 18 118/69 (85) 97 I/O 10/23/17 10/23/17 10/23/17 10/24/17 10/24/17 10/24/17 07:00 15:00 23:00 07:00 15:00 23:00 Intake Total 30 ml 350 ml 500 ml Output Total 220 ml 20 ml Balance 30 ml 130 ml 480 ml Intake Oral 30 ml 500 ml Other 350 ml Output Drainage Total 20 ml 20 ml Estimated Blood Loss 200 ml # Voids 3 Result Diagram: 10/23/17 0603 10/24/17 0635 Imaging Last Impressions Hand MRI 10/22/17 0000 Signed Impressions: Service Date/Time: Sunday, October 22, 2017 08:05 - CONCLUSION: 1. Diffuse nonspecific soft tissue swelling and edema are gone along the dorsum of the hand and wrist. This is characteristic of prominent cellulitis. There is a complex fluid collection measuring 2.6 x 1.5 cm on the dorsum of the wrist level. This is suggestive of a soft tissue abscess. 2. There is normal signal within the bony structures. There is no evidence to suggest osteomyelitis. Jim Eduardo MD Radius/Ulna X-Ray 10/21/17 0000 Signed Impressions: Service Date/Time: Saturday, October 21, 2017 14:48 - CONCLUSION: Unremarkable examination of the left forearm. Maximus Ulloa Jr., MD Hand X-Ray 10/21/17 0000 Signed Impressions: Service Date/Time: Saturday, October 21, 2017 14:50 - CONCLUSION: 1. Dorsal soft tissue swelling. Maximus Ulloa Jr., MD Objective Remarks GENERAL: Well-nourished, well-developed middle aged male patient in NAD. SKIN: Warm and dry. Left upper extremity with dry dressing CARDIOVASCULAR: Bradycardic with regular rhythm. S1, S2 noted. No murmur appreciated. RESPIRATORY: No accessory muscle use. Clear to auscultation. Breath sounds equal bilaterally. GASTROINTESTINAL: Abdomen soft, non-tender, nondistended. Normoactive bowel sounds x4. MUSCULOSKELETAL: No obvious deformities. Left hand/wrist as above. Limited ROM of left wrist secondary to edema/pain. NEUROLOGICAL: Awake and alert. No obvious cranial nerve deficits. Motor grossly within normal limits. Normal speech. Procedures Incision and drainage deep abscess left wrist and forearm involving the extensor tendon sheaths of the left wrist. A/P Problem List: (1) Abscess of left hand ICD Code: L02.512 - Cutaneous abscess of left hand Assessment and Plan 37-year-old male with no significant past medical history presents to the emergency department for evaluation of left handed pain and swelling. Deep abscess left wrist and forearm involving the extensor tendon sheaths of the left wrist status post incision and drainage. Denies IVDA. UDS negative -Blood culture with NGTD -Continue antibiotics with IV Vanco/Zosyn -Give IVF hydration -Pain control with [place] prn, IV morphine prn breakthrough pain -[employer] consult to elevate LUE with IV pole/sling -Wound care for hand surgery. Consult infectious disease Bradycardia. Symptomatic. Telemetry and obtain EKG DVT Prophylaxis: teds/SCDs, ambulation Deny Montemayor MD Oct 24, 2017 08:28
[2017-10-24] MEDS: SODIUM CHLORIDE 0.9% FLUSH 10 ML FLUSH IV FLUSH SCH ×2 (08:55→21:56)
[2017-10-24] MEDS: DOCUSATE SODIUM 50 MG/SENNA 8.6 MG TAB PO SCH ×2 (08:55→21:00)
[2017-10-24 12:31] VITALS: BP 127/66; PULSE 50; RESP 18; TEMP 98.3; O2SAT 97
[2017-10-24] MEDS: ACETAMINOPHEN/HYDROcodone 325 MG/5 MG TAB PO PRN ×2 (14:31→21:57)
--- NOTE | 2017-10-24 15:24 | MB ---
cc: Royal Caro MD DATE OF CONSULT: 10/24/2017 REQUESTING PHYSICIAN: Deny Montemayor MD REASON: Deep abscess of the left forearm and wrist. HISTORY OF PRESENT ILLNESS: This is a 37-year-old white male who fell onto his left hand and injured his left wrist at the palmar aspect. He developed pain and swelling and he presented to the emergency department for evaluation on 10/21. At that time, he had pain also in the left forearm. The reason for the fall was because the patient tripped accidentally and he used his hand to break the fall. He denies any IV drug use. The patient was taken to surgery for I and D of the left wrist abscess. There was involvement of the extensor tendon sheath of the left wrist. There was noted to be significant purulence which was debrided. Cultures have been taking and the results are pending. The cultures so far show no growth at 24 hours. The patient has no other symptoms. He denies chills, nausea, vomiting. His white count on admission was 11.2 and today it is normal at 7.6. An MRI of the hand on 10/22 showed diffuse nonspecific soft tissue swelling and edema along the dorsum of the hand and wrist and a complex fluid collection measuring 2.6 x 1.5 on the dorsum of the wrist. There was no bony evidence of osteomyelitis. PAST MEDICAL HISTORY: Unremarkable. PAST SURGICAL HISTORY: Left biceps repair in 2006. ALLERGIES: NO KNOWN DRUG ALLERGIES. MEDICATIONS: [place] 5 p.r.n., vancomycin, piperacillin/tazobactam, Carmen-Colace. SOCIAL HISTORY: No tobacco. Occasional alcohol. Denies illicit drugs. FAMILY HISTORY: Noncontributory. REVIEW OF SYSTEMS: Negative 10-point review. PHYSICAL EXAMINATION: GENERAL: This is a well-developed male who is in no acute distress. He is awake, alert and oriented. VITAL SIGNS: Temperature 98.3, BP 127/66, respirations 18, heart rate 50. HEENT: The head is atraumatic. Extraocular movements grossly intact, pupils reactive to light without icterus. No conjunctival erythema, Oropharynx, moist mucosa without lesions. NECK: Supple without adenopathy. LUNGS: Clear breath sounds. HEART: Regular rate and rhythm without murmurs, rubs, or gallops. ABDOMEN: Bowel sounds present, soft, no tenderness appreciated. RECTAL: Not performed. EXTREMITIES: The left hand is in a surgical dressing. This extends up to about mid-forearm level. There is no tenderness or swelling above the area of the dressing at the forearm. The fingers appear normal. SKIN: No diffuse rash. NEUROLOGIC: No gross focal findings. PSYCHIATRIC: Patient is calm and cooperative. LABORATORY STUDIES: WBC 7.6, platelet count of 160, hemoglobin 13.6. Creatinine 0.75. Sodium 141. IMPRESSION: Left wrist abscess following trauma from fall onto gravel. Status post I and D. Culture pending. RECOMMENDATIONS: 1. Continue vancomycin. 2. Continue piperacillin/tazobactam. 3. Monitor cultures for antibiotic adjustment. Thank you for this consultation. I will follow the patient's progress and make further recommendations on followup. MD VÍCTOR Monsalve/TI , 03:02 PM , 03:23 PM
[2017-10-24 15:38] VITALS: BP 122/63; PULSE 48; RESP 18; TEMP 98.1; O2SAT 98
[2017-10-24] MEDS ORDERED: PHARMACY ORDERED LAB ONE (21:45)
[2017-10-24 21:59] VITALS: BP 144/75; PULSE 68; RESP 18; TEMP 98; O2SAT 97
[2017-10-24] MEDS: VANCOMYCIN INJ 1,750 MG in SODIUM CHLORID 0.9% 500 ML INJ 500 ML IV SCH (23:49)
[2017-10-25] VITALS (10 sets, daily range): BP systolic 115–145; BP diastolic 60–74; PULSE 41–62; RESP 16–20; TEMP 97.9–98.9; O2SAT 96–99
[2017-10-25] MEDS: PIPERACIL-TAZO 3.375 GM PREMIX 50 ML IV SCH ×4 (02:30→22:09)
[2017-10-25] MEDS: ACETAMINOPHEN/HYDROcodone 325 MG/5 MG TAB PO PRN ×4 (02:34→22:10)
[2017-10-25] MEDS: DOCUSATE SODIUM 50 MG/SENNA 8.6 MG TAB PO SCH ×2 (08:42→21:55)
[2017-10-25] MEDS: SODIUM CHLORIDE 0.9% FLUSH 10 ML FLUSH IV FLUSH SCH ×2 (08:42→21:57)
[2017-10-25] MEDS: SODIUM CHLOR 0.9% 1000 ML INJ 1,000 ML IV SCH ×2 (09:14→21:57)
[2017-10-25] MEDS: VANCOMYCIN INJ 1,750 MG in SODIUM CHLORID 0.9% 500 ML INJ 500 ML IV SCH ×2 (09:20→16:56)
--- NOTE | 2017-10-25 18:01 | HHI.PR ---
Subjective Remarks Follow-up left upper extremity infection. Patient with improving pain. Patient has history of bradycardia area ranging in the low 40s to low 50s discussed with nursing Objective Vitals Vital Signs Date Time Temp Pulse Resp B/P (MAP) Pulse Ox O2 Delivery O2 Flow Rate FiO2 10/25/17 16:35 98.9 50 20 128/60 (82) 96 10/25/17 12:19 98.8 52 20 132/68 (89) 98 10/25/17 08:26 97.9 46 20 128/66 (86) 96 10/25/17 07:47 62 10/25/17 06:12 41 10/25/17 04:59 98.0 44 18 118/67 (84) 99 10/25/17 00:14 98.0 52 18 145/74 (97) 97 10/24/17 21:59 98.0 68 18 144/75 (98) 97 I/O 10/24/17 10/24/17 10/24/17 10/25/17 10/25/17 10/25/17 07:00 15:00 23:00 07:00 15:00 23:00 Intake Total 1100 ml 500 ml Output Total 20 ml Balance 1080 ml 500 ml Intake Oral 500 ml 500 ml IV Total 600 ml Output Drainage Total 20 ml Result Diagram: 10/23/17 0603 10/24/17 0635 Imaging Last Impressions Hand MRI 10/22/17 0000 Signed Impressions: Service Date/Time: Sunday, October 22, 2017 08:05 - CONCLUSION: 1. Diffuse nonspecific soft tissue swelling and edema are gone along the dorsum of the hand and wrist. This is characteristic of prominent cellulitis. There is a complex fluid collection measuring 2.6 x 1.5 cm on the dorsum of the wrist level. This is suggestive of a soft tissue abscess. 2. There is normal signal within the bony structures. There is no evidence to suggest osteomyelitis. Jim Eduardo MD Radius/Ulna X-Ray 10/21/17 0000 Signed Impressions: Service Date/Time: Saturday, October 21, 2017 14:48 - CONCLUSION: Unremarkable examination of the left forearm. Maximus Ulloa Jr., MD Hand X-Ray 10/21/17 0000 Signed Impressions: Service Date/Time: Saturday, October 21, 2017 14:50 - CONCLUSION: 1. Dorsal soft tissue swelling. Maximus Ulloa Jr., MD Objective Remarks GENERAL: Well-nourished, well-developed middle aged male patient in NAD. SKIN: Warm and dry. Left upper extremity with dry dressing CARDIOVASCULAR: Bradycardic with regular rhythm. S1, S2 noted. No murmur appreciated. RESPIRATORY: No accessory muscle use. Clear to auscultation. Breath sounds equal bilaterally. GASTROINTESTINAL: Abdomen soft, non-tender, nondistended. Normoactive bowel sounds x4. MUSCULOSKELETAL: No obvious deformities. Left hand/wrist as above. Limited ROM of left wrist secondary to edema/pain. NEUROLOGICAL: Awake and alert. No obvious cranial nerve deficits. Motor grossly within normal limits. Normal speech. Procedures Incision and drainage deep abscess left wrist and forearm involving the extensor tendon sheaths of the left wrist. A/P Problem List: (1) Abscess of left hand ICD Code: L02.512 - Cutaneous abscess of left hand Assessment and Plan 37-year-old male with no significant past medical history presents to the emergency department for evaluation of left handed pain and swelling. Deep abscess left wrist and forearm involving the extensor tendon sheaths of the left wrist status post incision and drainage. Denies IVDA. UDS negative -Blood and wound cultures NGTD -Continue antibiotics with IV Vanco/Zosyn -Give IVF hydration -Pain control with [place] prn, IV morphine prn breakthrough pain -[employer] consult to elevate LUE with IV pole/sling -Wound care for hand surgery. Consult infectious disease Sinus bradycardia, history of. Asymptomatic. EKG sinus bradycardia without blocks. DVT Prophylaxis: teds/SCDs, ambulation Deny Montemayor MD Oct 25, 2017 18:01
--- NOTE | 2017-10-25 19:21 | HHI.IDPN ---
Note Infectious Disease Note Patient says he feels okay. Still having pain in the left forearm and wrist. Afebrile. Wound culture pending. 37-year-old white male who fell onto his left hand and injured his left wrist at the palmar aspect. He developed pain and swelling and he presented to the emergency department for evaluation on 10/21. At that time, he had pain also in the left forearm. The reason for the fall was because the patient tripped accidentally and he used his hand to break the fall. He denies any IV drug use. The patient was taken to surgery for I and D of the left wrist abscess. There was involvement of the extensor tendon sheath of the left wrist. There was noted to be significant purulence which was debrided. Cultures have been taking and the results are pending. PAST SURGICAL HISTORY: Left biceps repair in 2006. ALLERGIES: NO KNOWN DRUG ALLERGIES. MEDICATIONS: Current Medications Medications (Trade) Dose Ordered Sig/Hina Route PRN Reason Start Time Stop Time Status Last Admin Dose Admin Piperacillin Sod/ Tazobactam Sod 50 ml @ 100 mls/hr Q6H IV 10/22/17 03:00 10/25/17 15:26 Pharmacy Profile Note 0 ml @ 0 mls/hr UNSCH OTHER 10/21/17 21:00 Sodium Chloride 1,000 ml @ 100 mls/hr Q10H IV 10/21/17 20:55 10/25/17 09:14 Sodium Chloride (NS Flush) 2 ml UNSCH PRN IV FLUSH FLUSH AFTER USING IV ACCESS 10/21/17 21:00 Sodium Chloride (NS Flush) 2 ml BID IV FLUSH 10/21/17 21:00 10/24/17 21:56 Ondansetron HCl (Zofran Inj) 4 mg Q6H PRN IVP NAUSEA OR VOMITING 10/21/17 21:00 Naloxone HCl (Narcan Inj) 0.4 mg UNSCH PRN IV PUSH SEE LABEL COMMENTS 10/21/17 21:00 Senna/Docusate Sodium (Carmen-Colace) 1 tab BID PO 10/21/17 21:00 10/21/17 22:15 Magnesium Hydroxide (Milk Of Magnesia Liq) 30 ml Q12H PRN PO Mild constipation 10/21/17 21:00 Sennosides (Senokot) 17.2 mg Q12H PRN PO Moderate constipation 10/21/17 21:00 Bisacodyl (Dulcolax Supp) 10 mg DAILY PRN RECTAL SEVERE CONSITIPATION 10/21/17 21:00 Lactulose (Lactulose Liq) 30 ml DAILY PRN PO SEVERE CONSITIPATION 10/21/17 21:00 Acetaminophen (Tylenol) 650 mg Q6H PRN PO headache/fever/pain1-2 10/22/17 16:00 Acetaminophen/ Hydrocodone Bitart ([place] 5-325 Mg) 1 tab Q4H PRN PO PAIN SCALE 3 TO 5 10/22/17 16:00 10/25/17 15:31 Acetaminophen/ Hydrocodone Bitart ([place] 7.5-325 Mg) 1 tab Q4H PRN PO PAIN SCALE 6 TO 10 10/22/17 16:00 Morphine Sulfate (Morphine Inj) 2 mg Q3H PRN IV PUSH BREAKTHROUGH PAIN 10/22/17 16:00 10/25/17 17:22 Vancomycin HCl 1750 mg/Sodium Chloride 517.5 ml @ 250 mls/hr Q8H IV 10/25/17 00:00 10/25/17 16:56 Miscellaneous Information SPECIFIC LAB TO BE SUZANNE... ONCE ONCE .XX 10/26/17 07:45 10/26/17 07:46 OBJECTIVE: Vital Signs Date Time Temp Pulse Resp B/P (MAP) Pulse Ox O2 Delivery O2 Flow Rate FiO2 10/25/17 16:35 98.9 50 20 128/60 (82) 96 10/25/17 12:19 98.8 52 20 132/68 (89) 98 10/25/17 08:26 97.9 46 20 128/66 (86) 96 10/25/17 07:47 62 10/25/17 06:12 41 10/25/17 04:59 98.0 44 18 118/67 (84) 99 10/25/17 00:14 98.0 52 18 145/74 (97) 97 10/24/17 21:59 98.0 68 18 144/75 (98) 97 Laboratory Tests Test 10/24/17 06:35 Creatinine 0.75 MG/DL Estimat Glomerular Filtration Rate 117 ML/MIN Microbiology Date/Time Source Procedure Growth Status 10/23/17 17:30 Wound Arm Fungal Smear - Final NO FUNGAL ELEMENTS SEEN. Resulted 10/23/17 17:30 Wound Arm Fungal Culture Pending Resulted 10/23/17 17:30 Wound Arm Acid Fast Stain - Final NO ACID FAST BACILLI SEEN Resulted 10/23/17 17:30 Wound Arm Mycobacterial Culture Pending Resulted 10/23/17 17:30 Wound Arm Gram Stain - Final Resulted 10/23/17 17:30 Wound Arm Wound Culture - Preliminary NO GROWTH IN 48 HOURS. Resulted 10/23/17 17:30 Wound Arm Fungal Smear - Final NO FUNGAL ELEMENTS SEEN. Resulted 10/23/17 17:30 Wound Arm Fungal Culture Pending Resulted 10/23/17 17:30 Wound Arm Acid Fast Stain - Final NO ACID FAST BACILLI SEEN Resulted 10/23/17 17:30 Wound Arm Mycobacterial Culture Pending Resulted 10/23/17 17:30 Wound Arm Gram Stain - Final Resulted 10/23/17 17:30 Wound Arm Wound Culture - Preliminary NO GROWTH IN 48 HOURS. Resulted Last Impressions Hand MRI 10/22/17 0000 Signed Impressions: Service Date/Time: Sunday, October 22, 2017 08:05 - CONCLUSION: 1. Diffuse nonspecific soft tissue swelling and edema are gone along the dorsum of the hand and wrist. This is characteristic of prominent cellulitis. There is a complex fluid collection measuring 2.6 x 1.5 cm on the dorsum of the wrist level. This is suggestive of a soft tissue abscess. 2. There is normal signal within the bony structures. There is no evidence to suggest osteomyelitis. Jim Eduardo MD Radius/Ulna X-Ray 10/21/17 0000 Signed Impressions: Service Date/Time: Saturday, October 21, 2017 14:48 - CONCLUSION: Unremarkable examination of the left forearm. Maximus Ulloa Jr., MD Hand X-Ray 10/21/17 0000 Signed Impressions: Service Date/Time: Saturday, October 21, 2017 14:50 - CONCLUSION: 1. Dorsal soft tissue swelling. Maximus Ulloa Jr., MD PHYSICAL EXAMINATION: GENERAL: No acute distress. Awake, alert and oriented. HEENT: The head is atraumatic. Extraocular movements grossly intact, pupils reactive to light without icterus. No conjunctival erythema, Oropharynx, moist mucosa without lesions. NECK: Supple without adenopathy. LUNGS: Clear breath sounds. HEART: Regular rate and rhythm without murmurs, rubs, or gallops. ABDOMEN: Bowel sounds present, soft, no tenderness appreciated. EXTREMITIES: The left hand is in a surgical dressing. This extends up to about mid-forearm level. The fingers appear normal. SKIN: No diffuse rash. NEUROLOGIC: No gross focal findings. PSYCHIATRIC: Calm and cooperative. IMPRESSION: Left wrist abscess following trauma from fall onto gravel. Status post I and D. Culture pending. RECOMMENDATIONS: 1. Continue vancomycin. 2. Continue piperacillin/tazobactam. 3. Monitor cultures for antibiotic adjustment. Continue current IV antibiotic treatment through the weekend. Royal Caro MD Oct 25, 2017 19:21
--- NOTE | 2017-10-25 22:40 | PD.ORT.PN ---
Subjective Subjective Remarks Patient reports mild pain left wrist. Denies paresthesias. Objective Vitals Vital Signs Date Time Temp Pulse Resp B/P (MAP) Pulse Ox O2 Delivery O2 Flow Rate FiO2 10/25/17 21:22 99 21 10/25/17 20:36 97.9 48 17 117/70 (86) 99 10/25/17 16:35 98.9 50 20 128/60 (82) 96 10/25/17 12:19 98.8 52 20 132/68 (89) 98 10/25/17 08:26 97.9 46 20 128/66 (86) 96 10/25/17 07:47 62 10/25/17 06:12 41 10/25/17 04:59 98.0 44 18 118/67 (84) 99 10/25/17 00:14 98.0 52 18 145/74 (97) 97 I/O 10/24/17 10/24/17 10/24/17 10/25/17 10/25/17 10/25/17 07:00 15:00 23:00 07:00 15:00 23:00 Intake Total 1100 ml 500 ml Output Total 20 ml Balance 1080 ml 500 ml Intake Oral 500 ml 500 ml IV Total 600 ml Output Drainage Total 20 ml Result Diagram: 10/23/17 0603 10/24/17 0635 Imaging Last 24 hours Impressions Hand MRI 10/22/17 0000 Signed Impressions: Service Date/Time: Sunday, October 22, 2017 08:05 - CONCLUSION: 1. Diffuse nonspecific soft tissue swelling and edema are gone along the dorsum of the hand and wrist. This is characteristic of prominent cellulitis. There is a complex fluid collection measuring 2.6 x 1.5 cm on the dorsum of the wrist level. This is suggestive of a soft tissue abscess. 2. There is normal signal within the bony structures. There is no evidence to suggest osteomyelitis. Jim Eduardo MD Objective Remarks Dressing changed, drain removed, sutures in place without erythema or drainage, swelling significantly improved, sitlt m/u/r, full extension/flexion fingers, 2 + radial pulse Assessment & Plan Assessment and Plan 37yM POD2 s/p I&D left wrist/forearm -Cultures prelim negative, Ab per ID -Drain removed, okay to d/c from hand surgery standpoint once ID determines antibiotics -Daily dressing changes, elevate hand -Followup 2 weeks Rashida Bennett MD Oct 25, 2017 22:40
[2017-10-26] VITALS (7 sets, daily range): BP systolic 115–128; BP diastolic 57–70; PULSE 49–84; RESP 16–20; TEMP 97.3–98.5; O2SAT 97–98
[2017-10-26] MEDS: VANCOMYCIN INJ 1,750 MG in SODIUM CHLORID 0.9% 500 ML INJ 500 ML IV SCH ×3 (00:59→23:43)
[2017-10-26] MEDS: PIPERACIL-TAZO 3.375 GM PREMIX 50 ML IV SCH ×4 (03:01→20:48)
[2017-10-26] MEDS: ACETAMINOPHEN/HYDROcodone 325 MG/7.5 MG TAB PO PRN ×3 (04:34→15:30)
[2017-10-26] MEDS: SODIUM CHLOR 0.9% 1000 ML INJ 1,000 ML IV SCH ×2 (05:41→17:41)
[2017-10-26] MEDS ORDERED: PHARMACY ORDERED LAB ONE (07:45)
[2017-10-26] MEDS: DOCUSATE SODIUM 50 MG/SENNA 8.6 MG TAB PO SCH ×2 (08:51→20:50)
[2017-10-26] MEDS: SODIUM CHLORIDE 0.9% FLUSH 10 ML FLUSH IV FLUSH SCH ×2 (08:52→20:50)
--- NOTE | 2017-10-26 08:59 | HHI.PR ---
Subjective Remarks in no acute distress. pain is controlled. no fever. no new complaints. Objective Vitals Vital Signs Date Time Temp Pulse Resp B/P (MAP) Pulse Ox O2 Delivery O2 Flow Rate FiO2 10/26/17 05:39 18 10/26/17 04:15 97.3 50 16 124/69 (87) 98 10/26/17 00:30 98.3 56 17 115/70 (85) 98 10/25/17 23:10 18 10/25/17 21:30 98.2 54 16 115/64 (81) 98 10/25/17 21:22 99 21 10/25/17 20:36 97.9 48 17 117/70 (86) 99 10/25/17 16:35 98.9 50 20 128/60 (82) 96 10/25/17 12:19 98.8 52 20 132/68 (89) 98 I/O 10/25/17 10/25/17 10/25/17 10/26/17 10/26/17 10/26/17 07:00 15:00 23:00 07:00 15:00 23:00 Intake Total 500 ml 0 ml 1500 ml Balance 500 ml 0 ml 1500 ml Intake Oral 500 ml 0 ml 500 ml IV Total 1000 ml # Voids 0 2 # Bowel Movements 0 0 Result Diagram: 10/23/17 0603 10/24/17 0635 Imaging Last Impressions Hand MRI 10/22/17 0000 Signed Impressions: Service Date/Time: Sunday, October 22, 2017 08:05 - CONCLUSION: 1. Diffuse nonspecific soft tissue swelling and edema are gone along the dorsum of the hand and wrist. This is characteristic of prominent cellulitis. There is a complex fluid collection measuring 2.6 x 1.5 cm on the dorsum of the wrist level. This is suggestive of a soft tissue abscess. 2. There is normal signal within the bony structures. There is no evidence to suggest osteomyelitis. Jim Eduardo MD Radius/Ulna X-Ray 10/21/17 0000 Signed Impressions: Service Date/Time: Saturday, October 21, 2017 14:48 - CONCLUSION: Unremarkable examination of the left forearm. Maximus Ulloa Jr., MD Hand X-Ray 10/21/17 0000 Signed Impressions: Service Date/Time: Saturday, October 21, 2017 14:50 - CONCLUSION: 1. Dorsal soft tissue swelling. Maximus Ulloa Jr., MD Objective Remarks GENERAL: This is a well-nourished, well-developed patient, in no apparent distress. CARDIOVASCULAR: Regular rate and regular rhythm without murmurs, gallops, or rubs. RESPIRATORY: Clear to auscultation. Breath sounds equal bilaterally. No wheezes , rales, or rhonchi. GASTROINTESTINAL: Abdomen soft, non-tender, nondistended. Normal, active bowel sounds MUSCULOSKELETAL: left forearm covered with clean dressing. NEURO: Alert & Oriented x4 to person, place, time, situation. Moves all ext x4 Procedures Incision and drainage deep abscess left wrist and forearm involving the extensor tendon sheaths of the left wrist. Medications and IVs Inpatient Medications Acetaminophen (Tylenol) 650 mg Q6H PRN PO headache/fever/pain1-2; Start at 16:00 Acetaminophen/ Hydrocodone Bitart ([place] 5-325 Mg) 1 tab Q4H PRN PO PAIN SCALE 3 TO 5 Last administered on 10/25/17at 22:10; Start 10/22/17 at 16:00 Acetaminophen/ Hydrocodone Bitart ([place] 7.5-325 Mg) 1 tab Q4H PRN PO PAIN SCALE 6 TO 10 Last administered on 10/26/17at 04:34; Start 10/22/17 at 16:00 Bisacodyl (Dulcolax Supp) 10 mg DAILY PRN RECTAL SEVERE CONSITIPATION; Start at 21:00 Chlorhexidine Gluconate (Chlorhexidine 2% Cloth) 3 pack ZONING ADMINISTRATOR PRN TOPICAL SEE LABEL COMMENTS; Start 10/22/17 at 16:00; Stop 10/25/17 at 15:59; Status DC Insulin Human Regular (NovoLIN R INJ) See Protocol Table ... ZONING ADMINISTRATOR PRN SQ SEE PROTOCOL TABLE; Start 10/22/17 at 16:00; Stop 10/25/17 at 15:59; Status DC Lactated Ringer's 1,000 ml @ 30 mls/hr Q24H PRN IV SEE LABEL COMMENTS; Start at 16:00; Stop 10/25/17 at 15:59; Status DC Lactulose (Lactulose Liq) 30 ml DAILY PRN PO SEVERE CONSITIPATION; Start at 21:00 Magnesium Hydroxide (Milk Of Magnesia Liq) 30 ml Q12H PRN PO Mild constipation ; Start 10/21/17 at 21:00 Metoprolol Tartrate (Lopressor) 25 mg ZONING ADMINISTRATOR PRN PO SEE LABEL COMMENTS; Start 10/22/17 at 16:00; Stop 10/25/17 at 15:59; Status DC Miscellaneous Information SPECIFIC LAB TO BE SUZANNE... ONCE ONCE .XX Last administered on 10/26/17at 07:45; Start 10/26/17 at 07:45; Stop 10/26/17 at 07:46 ; Status DC Morphine Sulfate (Morphine Inj) 2 mg Q3H PRN IV PUSH BREAKTHROUGH PAIN Last administered on 10/25/17at 17:22; Start 10/22/17 at 16:00 Naloxone HCl (Narcan Inj) 0.4 mg UNSCH PRN IV PUSH SEE LABEL COMMENTS; Start at 21:00 Ondansetron HCl (Zofran Inj) 4 mg Q6H PRN IVP NAUSEA OR VOMITING; Start at 21:00 Pharmacy Profile Note 0 ml @ 0 mls/hr UNSCH OTHER ; Start 10/21/17 at 21:00 Piperacillin Sod/ Tazobactam Sod 50 ml @ 100 mls/hr Q6H IV Last administered on 10/26/17at 03:01; Start 10/22/17 at 03:00 Povidone Iodine (Betadine 5% Antisepsis Kit) 1 applic ZONING ADMINISTRATOR PRN EACH NARE SEE LABEL COMMENTS; Start 10/22/17 at 16:00; Stop 10/25/17 at 15:59; Status DC Senna/Docusate Sodium (Carmen-Colace) 1 tab BID PO Last administered on 10/25/17at 21:55; Start 10/21/17 at 21:00 Sennosides (Senokot) 17.2 mg Q12H PRN PO Moderate constipation; Start 10/21/17 at 21:00 Sodium Chloride 500 ml @ 30 mls/hr [id number] PRN IV SEE LABEL COMMENTS; Start 10/22/17 at 16:00; Stop 10/25/17 at 15:59; Status DC Sodium Chloride (NS Flush) 2 ml BID IV FLUSH Last administered on 10/25/17at 21: 57; Start 10/21/17 at 21:00 Vancomycin HCl 1750 mg/Sodium Chloride 517.5 ml @ 250 mls/hr Q8H IV Last administered on 10/26/17at 00:59; Start 10/25/17 at 00:00 Vancomycin HCl 2000 mg/Sodium Chloride 520 ml @ 250 mls/hr Q12H IV Last administered on 10/24/17at 10:24; Start 10/22/17 at 10:00; Stop 10/24/17 at 23:18; Status DC Vancomycin HCl 2150 mg/Sodium Chloride 521.5 ml @ 250 mls/hr ONCE ONCE IV Last administered on 10/21/17at 22:16; Start 10/21/17 at 21:00; Stop 10/21/17 at 23: 05; Status DC A/P Problem List: (1) Abscess of left hand ICD Code: L02.512 - Cutaneous abscess of left hand Assessment and Plan Deep abscess left wrist and forearm involving the extensor tendon sheaths of the left wrist status post incision and drainage. Denies IVDA. UDS negative -Blood and wound cultures NGTD -Continue antibiotics with IV Vanco/Zosyn -Give IVF hydration -Pain control with [place] prn, IV morphine prn breakthrough pain -[employer] consult to elevate LUE with IV pole/sling -Wound care for hand surgery. -ID consult appreciated. Sinus bradycardia, history of. Asymptomatic. EKG sinus bradycardia without blocks. DVT Prophylaxis: teds/SCDs, ambulation Discharge Planning continue IV antibiotics over the weekend-per ID. Janee Phelps MD Oct 26, 2017 08:59
[2017-10-26] MEDS: ACETAMINOPHEN/HYDROcodone 325 MG/5 MG TAB PO PRN (20:47)
--- NOTE | 2017-10-26 22:49 | EKG ---
Date Performed: 10/24/2017 Time Performed: 22:16:16 PTAGE: 37 years EKG: SINUS BRADYCARDIA WITH SINUS ARRHYTHMIA BORDERLINE ECG PREVIOUS TRACING : 04/09/2017 14.39 Since the prior tracing, there has been no significant meyers DOCTOR: Lai Padilla Interpretating Date/Time 10/26/2017 22:47:57
[2017-10-27] VITALS: BP 125/64; PULSE 67; RESP 18; TEMP 97.6; O2SAT 97
[2017-10-27] MEDS: SODIUM CHLOR 0.9% 1000 ML INJ 1,000 ML IV SCH ×3 (01:58→22:16)
[2017-10-27] MEDS: PIPERACIL-TAZO 3.375 GM PREMIX 50 ML IV SCH ×4 (03:01→20:47)
[2017-10-27 04:00] VITALS: BP 115/76; PULSE 50; RESP 18; TEMP 97.7; O2SAT 98
[2017-10-27] MEDS: ACETAMINOPHEN/HYDROcodone 325 MG/5 MG TAB PO PRN (07:05)
[2017-10-27] MEDS: SODIUM CHLORIDE 0.9% FLUSH 10 ML FLUSH IV FLUSH SCH ×2 (07:08→20:47)
[2017-10-27] MEDS: DOCUSATE SODIUM 50 MG/SENNA 8.6 MG TAB PO SCH ×2 (07:10→20:47)
[2017-10-27 08:00] VITALS: BP 117/64; PULSE 46; RESP 18; TEMP 98.2; O2SAT 98
[2017-10-27 09:07] LABS: CREATININE 0.94 MG/DL (0.60-1.30)
[2017-10-27] MEDS: VANCOMYCIN INJ 1,750 MG in SODIUM CHLORID 0.9% 500 ML INJ 500 ML IV SCH ×2 (09:12→22:16)
--- NOTE | 2017-10-27 09:31 | HHI.PR ---
Subjective Remarks in no acute distress. pain is controlled. no fever. no new complaints. Objective Vitals Vital Signs Date Time Temp Pulse Resp B/P (MAP) Pulse Ox O2 Delivery O2 Flow Rate FiO2 10/27/17 08:00 98.2 46 18 117/64 (81) 98 10/27/17 04:00 97.7 50 18 115/76 (89) 98 10/27/17 00:00 97.6 67 18 125/64 (84) 97 10/26/17 21:28 98 21.00 10/26/17 20:00 98.2 84 18 128/65 (86) 98 10/26/17 15:42 98.4 49 20 127/65 (85) 98 10/26/17 11:55 98.5 51 20 122/64 (83) 98 10/26/17 09:47 97.6 50 20 126/57 (80) 97 I/O 10/26/17 10/26/17 10/26/17 10/27/17 10/27/17 10/27/17 06:59 14:59 22:59 06:59 14:59 22:59 Intake Total 1500 ml 500 ml 940 ml 50 ml Balance 1500 ml 500 ml 940 ml 50 ml Intake Oral 500 ml 940 ml IV Total 1000 ml 500 ml 50 ml # Voids 2 3 4 # Bowel Movements 0 1 5 Result Diagram: 10/23/17 0603 10/27/17 0749 Imaging Last Impressions Hand MRI 10/22/17 0000 Signed Impressions: Service Date/Time: Sunday, October 22, 2017 08:05 - CONCLUSION: 1. Diffuse nonspecific soft tissue swelling and edema are gone along the dorsum of the hand and wrist. This is characteristic of prominent cellulitis. There is a complex fluid collection measuring 2.6 x 1.5 cm on the dorsum of the wrist level. This is suggestive of a soft tissue abscess. 2. There is normal signal within the bony structures. There is no evidence to suggest osteomyelitis. Jim Eduardo MD Radius/Ulna X-Ray 10/21/17 0000 Signed Impressions: Service Date/Time: Saturday, October 21, 2017 14:48 - CONCLUSION: Unremarkable examination of the left forearm. Maximus Ulloa Jr., MD Hand X-Ray 10/21/17 0000 Signed Impressions: Service Date/Time: Saturday, October 21, 2017 14:50 - CONCLUSION: 1. Dorsal soft tissue swelling. Maximus Ulloa Jr., MD Objective Remarks GENERAL: This is a well-nourished, well-developed patient, in no apparent distress. CARDIOVASCULAR: Regular rate and regular rhythm without murmurs, gallops, or rubs. RESPIRATORY: Clear to auscultation. Breath sounds equal bilaterally. No wheezes , rales, or rhonchi. GASTROINTESTINAL: Abdomen soft, non-tender, nondistended. Normal, active bowel sounds MUSCULOSKELETAL: left forearm covered with clean dressing. NEURO: Alert & Oriented x4 to person, place, time, situation. Moves all ext x4 Procedures Incision and drainage deep abscess left wrist and forearm involving the extensor tendon sheaths of the left wrist. Medications and IVs Inpatient Medications Acetaminophen (Tylenol) 650 mg Q6H PRN PO headache/fever/pain1-2; Start at 16:00 Acetaminophen/ Hydrocodone Bitart ([place] 5-325 Mg) 1 tab Q4H PRN PO PAIN SCALE 3 TO 5 Last administered on 10/27/17at 07:05; Start 10/22/17 at 16:00 Acetaminophen/ Hydrocodone Bitart ([place] 7.5-325 Mg) 1 tab Q4H PRN PO PAIN SCALE 6 TO 10 Last administered on 10/26/17at 15:30; Start 10/22/17 at 16:00 Bisacodyl (Dulcolax Supp) 10 mg DAILY PRN RECTAL SEVERE CONSITIPATION; Start at 21:00 Chlorhexidine Gluconate (Chlorhexidine 2% Cloth) 3 pack DOMESTIC TECHNICIAN PRN TOPICAL SEE LABEL COMMENTS; Start 10/22/17 at 16:00; Stop 10/25/17 at 15:59; Status DC Insulin Human Regular (NovoLIN R INJ) See Protocol Table ... DOMESTIC TECHNICIAN PRN SQ SEE PROTOCOL TABLE; Start 10/22/17 at 16:00; Stop 10/25/17 at 15:59; Status DC Lactated Ringer's 1,000 ml @ 30 mls/hr Q24H PRN IV SEE LABEL COMMENTS; Start at 16:00; Stop 10/25/17 at 15:59; Status DC Lactulose (Lactulose Liq) 30 ml DAILY PRN PO SEVERE CONSITIPATION; Start at 21:00 Magnesium Hydroxide (Milk Of Magnesia Liq) 30 ml Q12H PRN PO Mild constipation ; Start 10/21/17 at 21:00 Metoprolol Tartrate (Lopressor) 25 mg DOMESTIC TECHNICIAN PRN PO SEE LABEL COMMENTS; Start 10/22/17 at 16:00; Stop 10/25/17 at 15:59; Status DC Miscellaneous Information SPECIFIC LAB TO BE SUZANNE... ONCE ONCE .XX Last administered on 10/26/17at 07:45; Start 10/26/17 at 07:45; Stop 10/26/17 at 07:46 ; Status DC Morphine Sulfate (Morphine Inj) 2 mg Q3H PRN IV PUSH BREAKTHROUGH PAIN Last administered on 10/25/17at 17:22; Start 10/22/17 at 16:00 Naloxone HCl (Narcan Inj) 0.4 mg UNSCH PRN IV PUSH SEE LABEL COMMENTS; Start at 21:00 Ondansetron HCl (Zofran Inj) 4 mg Q6H PRN IVP NAUSEA OR VOMITING; Start at 21:00 Pharmacy Profile Note 0 ml @ 0 mls/hr UNSCH OTHER ; Start 10/21/17 at 21:00 Piperacillin Sod/ Tazobactam Sod 50 ml @ 100 mls/hr Q6H IV Last administered on 10/27/17at 08:08; Start 10/22/17 at 03:00 Povidone Iodine (Betadine 5% Antisepsis Kit) 1 applic DOMESTIC TECHNICIAN PRN EACH NARE SEE LABEL COMMENTS; Start 10/22/17 at 16:00; Stop 10/25/17 at 15:59; Status DC Senna/Docusate Sodium ([place]armen-Colace) 1 tab BID PO Last administered on at 08:51; Start 10/21/17 at 21:00 Sennosides (Senokot) 17.2 mg Q12H PRN PO Moderate constipation; Start 10/21/17 at 21:00 Sodium Chloride 500 ml @ 30 mls/hr [id number] PRN IV SEE LABEL COMMENTS; Start 10/22/17 at 16:00; Stop 10/25/17 at 15:59; Status DC Sodium Chloride (NS Flush) 2 ml BID IV FLUSH Last administered on 10/26/17at 08: 52; Start 10/21/17 at 21:00 Vancomycin HCl 1750 mg/Sodium Chloride 517.5 ml @ 250 mls/hr Q12H IV Last administered on 10/27/17at 09:12; Start 10/26/17 at 22:00 Vancomycin HCl 2000 mg/Sodium Chloride 520 ml @ 250 mls/hr Q12H IV Last administered on 10/24/17at 10:24; Start 10/22/17 at 10:00; Stop 10/24/17 at 23:18; Status DC Vancomycin HCl 2150 mg/Sodium Chloride 521.5 ml @ 250 mls/hr ONCE ONCE IV Last administered on 10/21/17at 22:16; Start 10/21/17 at 21:00; Stop 10/21/17 at 23: 05; Status DC A/P Problem List: (1) Abscess of left hand ICD Code: L02.512 - Cutaneous abscess of left hand Assessment and Plan Deep abscess left wrist and forearm involving the extensor tendon sheaths of the left wrist status post incision and drainage. Denies IVDA. UDS negative -Blood and wound cultures NGTD -Continue antibiotics with IV Vanco/Zosyn -Pain control with [place] prn, IV morphine prn breakthrough pain -[employer] consult to elevate LUE with IV pole/sling -Wound care per hand surgery. -ID consult appreciated. Sinus bradycardia, history of. Asymptomatic. EKG sinus bradycardia without blocks. DVT Prophylaxis: teds/SCDs, ambulation Discharge Planning continue IV antibiotics over the weekend-per ID. Janee Phelps MD Oct 27, 2017 09:31
[2017-10-27] MEDS: ACETAMINOPHEN/HYDROcodone 325 MG/7.5 MG TAB PO PRN ×3 (11:57→20:47)
[2017-10-27 12:00] VITALS: BP 121/70; PULSE 56; RESP 18; TEMP 98.5; O2SAT 98
[2017-10-27 16:00] VITALS: BP 119/68; PULSE 56; RESP 18; TEMP 98.6; O2SAT 97
[2017-10-27 20:00] VITALS: BP 129/60; PULSE 46; RESP 18; TEMP 97.1; O2SAT 98
[2017-10-28] VITALS: BP 125/84; PULSE 58; RESP 18; TEMP 97.9; O2SAT 97
[2017-10-28] MEDS: ACETAMINOPHEN/HYDROcodone 325 MG/7.5 MG TAB PO PRN (01:20)
[2017-10-28] MEDS: PIPERACIL-TAZO 3.375 GM PREMIX 50 ML IV SCH ×2 (03:10→08:25)
[2017-10-28 04:00] VITALS: BP 126/60; PULSE 46; RESP 18; TEMP 98; O2SAT 96
[2017-10-28] MEDS: SODIUM CHLOR 0.9% 1000 ML INJ 1,000 ML IV SCH (08:11)
[2017-10-28 08:16] VITALS: BP 117/59; PULSE 48; RESP 20; TEMP 97.7; O2SAT 98
[2017-10-28] MEDS: ACETAMINOPHEN/HYDROcodone 325 MG/5 MG TAB PO PRN ×2 (08:24→12:01)
[2017-10-28] MEDS: DOCUSATE SODIUM 50 MG/SENNA 8.6 MG TAB PO SCH ×2 (08:25→08:32)
[2017-10-28] MEDS: SODIUM CHLORIDE 0.9% FLUSH 10 ML FLUSH IV FLUSH SCH (08:25)
[2017-10-28] MEDS ORDERED: PHARMACY ORDERED LAB ONE (09:45)
--- NOTE | 2017-10-28 10:02 | HHI.PR ---
Subjective Remarks in no acute distress. no fever. pain is controlled. no new complaints. Objective Vitals Vital Signs Date Time Temp Pulse Resp B/P (MAP) Pulse Ox O2 Delivery O2 Flow Rate FiO2 10/28/17 08:16 97.7 48 20 117/59 (78) 98 10/28/17 04:00 98.0 46 18 126/60 (82) 96 10/28/17 00:00 97.9 58 18 125/84 (98) 97 10/27/17 20:00 97.1 46 18 129/60 (83) 98 10/27/17 16:00 98.6 56 18 119/68 (85) 97 10/27/17 12:00 98.5 56 18 121/70 (87) 98 I/O 10/27/17 10/27/17 10/27/17 10/28/17 10/28/17 10/28/17 07:00 15:00 23:00 07:00 15:00 23:00 Intake Total 550 ml 50 ml Balance 550 ml 50 ml IV Total 550 ml 50 ml # Voids 4 8 # Bowel Movements 5 Result Diagram: 10/27/17 0749 Imaging Last Impressions Hand MRI 10/22/17 0000 Signed Impressions: Service Date/Time: Sunday, October 22, 2017 08:05 - CONCLUSION: 1. Diffuse nonspecific soft tissue swelling and edema are gone along the dorsum of the hand and wrist. This is characteristic of prominent cellulitis. There is a complex fluid collection measuring 2.6 x 1.5 cm on the dorsum of the wrist level. This is suggestive of a soft tissue abscess. 2. There is normal signal within the bony structures. There is no evidence to suggest osteomyelitis. Jim Eduardo MD Radius/Ulna X-Ray 10/21/17 0000 Signed Impressions: Service Date/Time: Saturday, October 21, 2017 14:48 - CONCLUSION: Unremarkable examination of the left forearm. Maximus Ulloa Jr., MD Hand X-Ray 10/21/17 0000 Signed Impressions: Service Date/Time: Saturday, October 21, 2017 14:50 - CONCLUSION: 1. Dorsal soft tissue swelling. Maximus Ulloa Jr., MD Objective Remarks GENERAL: This is a well-nourished, well-developed patient, in no apparent distress. CARDIOVASCULAR: Regular rate and regular rhythm without murmurs, gallops, or rubs. RESPIRATORY: Clear to auscultation. Breath sounds equal bilaterally. No wheezes , rales, or rhonchi. GASTROINTESTINAL: Abdomen soft, non-tender, nondistended. Normal, active bowel sounds MUSCULOSKELETAL: left forearm covered with clean dressing. NEURO: Alert & Oriented x4 to person, place, time, situation. Moves all ext x4 Procedures Incision and drainage deep abscess left wrist and forearm involving the extensor tendon sheaths of the left wrist. Medications and IVs Inpatient Medications Acetaminophen (Tylenol) 650 mg Q6H PRN PO headache/fever/pain1-2; Start at 16:00 Acetaminophen/ Hydrocodone Bitart (Merna 5-325 Mg) 1 tab Q4H PRN PO PAIN SCALE 3 TO 5 Last administered on 10/28/17at 08:24; Start 10/22/17 at 16:00 Acetaminophen/ Hydrocodone Bitart (Merna 7.5-325 Mg) 1 tab Q4H PRN PO PAIN SCALE 6 TO 10 Last administered on 10/28/17at 01:20; Start 10/22/17 at 16:00 Bisacodyl (Dulcolax Supp) 10 mg DAILY PRN RECTAL SEVERE CONSITIPATION; Start at 21:00 Chlorhexidine Gluconate (Chlorhexidine 2% Cloth) 3 pack LONG TERM PRN TOPICAL SEE LABEL COMMENTS; Start 10/22/17 at 16:00; Stop 10/25/17 at 15:59; Status DC Insulin Human Regular (NovoLIN R INJ) See Protocol Table ... LONG TERM PRN SQ SEE PROTOCOL TABLE; Start 10/22/17 at 16:00; Stop 10/25/17 at 15:59; Status DC Lactated Ringer's 1,000 ml @ 30 mls/hr Q24H PRN IV SEE LABEL COMMENTS; Start at 16:00; Stop 10/25/17 at 15:59; Status DC Lactulose (Lactulose Liq) 30 ml DAILY PRN PO SEVERE CONSITIPATION; Start at 21:00 Magnesium Hydroxide (Milk Of Magnesia Liq) 30 ml Q12H PRN PO Mild constipation ; Start 10/21/17 at 21:00 Metoprolol Tartrate (Lopressor) 25 mg LONG TERM PRN PO SEE LABEL COMMENTS; Start 10/22/17 at 16:00; Stop 10/25/17 at 15:59; Status DC Miscellaneous Information SPECIFIC LAB TO BE SUZANNE... ONCE ONCE .XX ; Start 10/28 at 09:45; Stop 10/28/17 at 09:46; Status DC Morphine Sulfate (Morphine Inj) 2 mg Q3H PRN IV PUSH BREAKTHROUGH PAIN Last administered on 10/25/17at 17:22; Start 10/22/17 at 16:00 Naloxone HCl (Narcan Inj) 0.4 mg UNSCH PRN IV PUSH SEE LABEL COMMENTS; Start at 21:00 Ondansetron HCl (Zofran Inj) 4 mg Q6H PRN IVP NAUSEA OR VOMITING; Start at 21:00 Pharmacy Profile Note 0 ml @ 0 mls/hr UNSCH OTHER ; Start 10/21/17 at 21:00 Piperacillin Sod/ Tazobactam Sod 50 ml @ 100 mls/hr Q6H IV Last administered on 10/28/17at 08:25; Start 10/22/17 at 03:00 Povidone Iodine (Betadine 5% Antisepsis Kit) 1 applic LONG TERM PRN EACH NARE SEE LABEL COMMENTS; Start 10/22/17 at 16:00; Stop 10/25/17 at 15:59; Status DC Senna/Docusate Sodium (Carmen-Colace) 1 tab BID PO Last administered on at 08:51; Start 10/21/17 at 21:00 Sennosides (Senokot) 17.2 mg Q12H PRN PO Moderate constipation; Start 10/21/17 at 21:00 Sodium Chloride 500 ml @ 30 mls/hr [id number] PRN IV SEE LABEL COMMENTS; Start 10/22/17 at 16:00; Stop 10/25/17 at 15:59; Status DC Sodium Chloride (NS Flush) 2 ml BID IV FLUSH Last administered on 10/28/17at 08: 25; Start 10/21/17 at 21:00 Vancomycin HCl 1750 mg/Sodium Chloride 517.5 ml @ 250 mls/hr Q12H IV Last administered on 10/27/17at 22:16; Start 10/26/17 at 22:00 Vancomycin HCl 2000 mg/Sodium Chloride 520 ml @ 250 mls/hr Q12H IV Last administered on 10/24/17at 10:24; Start 10/22/17 at 10:00; Stop 10/24/17 at 23:18; Status DC Vancomycin HCl 2150 mg/Sodium Chloride 521.5 ml @ 250 mls/hr ONCE ONCE IV Last administered on 10/21/17at 22:16; Start 10/21/17 at 21:00; Stop 10/21/17 at 23: 05; Status DC A/P Problem List: (1) Abscess of left hand ICD Code: L02.512 - Cutaneous abscess of left hand Assessment and Plan A/P Deep abscess left wrist and forearm involving the extensor tendon sheaths of the left wrist status post incision and drainage. Denies IVDA. UDS negative -Blood and wound cultures NGTD -treated with antibiotics with IV Vanco/Zosyn -Pain control with Merna prn, IV morphine prn breakthrough pain -Wound care per hand surgery. -ID following. Sinus bradycardia, history of. Asymptomatic. EKG sinus bradycardia without blocks. DVT Prophylaxis: teds/SCDs, ambulation Discharge Planning dc home - hopefully soon- when cleared by ID. f/u; pcp and hand surgery. see med list. d/w the patient. Janee Phelps MD Oct 28, 2017 10:02
[2017-10-28] MEDS: VANCOMYCIN INJ 1,750 MG in SODIUM CHLORID 0.9% 500 ML INJ 500 ML IV SCH (10:30)
--- NOTE | 2017-10-28 10:55 | HHI.IDPN ---
Note Infectious Disease Note Patient says he feels okay. Notes very little pain in the left forearm. Afebrile. Wound culture has no growth. Blood culture has mixed bacteria and one bottle of 4 from 10/21/2017. 37-year-old white male who fell onto his left hand and injured his left wrist at the palmar aspect. He developed pain and swelling and he presented to the emergency department for evaluation on 10/21. At that time, he had pain also in the left forearm. The reason for the fall was because the patient tripped accidentally and he used his hand to break the fall. He denies any IV drug use. The patient was taken to surgery for I and D of the left wrist abscess. There was involvement of the extensor tendon sheath of the left wrist. There was noted to be significant purulence which was debrided. PAST SURGICAL HISTORY: Left biceps repair in 2006. ALLERGIES: NO KNOWN DRUG ALLERGIES. MEDICATIONS: Current Medications Medications (Trade) Dose Ordered Sig/Hina Route PRN Reason Start Time Stop Time Status Last Admin Dose Admin Piperacillin Sod/ Tazobactam Sod 50 ml @ 100 mls/hr Q6H IV 10/22/17 03:00 10/28/17 08:25 Pharmacy Profile Note 0 ml @ 0 mls/hr UNSCH OTHER 10/21/17 21:00 Sodium Chloride 1,000 ml @ 100 mls/hr Q10H IV 10/21/17 20:55 10/27/17 22:16 Sodium Chloride (NS Flush) 2 ml UNSCH PRN IV FLUSH FLUSH AFTER USING IV ACCESS 10/21/17 21:00 Sodium Chloride (NS Flush) 2 ml BID IV FLUSH 10/21/17 21:00 10/28/17 08:25 Ondansetron HCl (Zofran Inj) 4 mg Q6H PRN IVP NAUSEA OR VOMITING 10/21/17 21:00 Naloxone HCl (Narcan Inj) 0.4 mg UNSCH PRN IV PUSH SEE LABEL COMMENTS 10/21/17 21:00 Senna/Docusate Sodium (Carmen-Colace) 1 tab BID PO 10/21/17 21:00 10/26/17 08:51 Magnesium Hydroxide (Milk Of Magnesia Liq) 30 ml Q12H PRN PO Mild constipation 10/21/17 21:00 Sennosides (Senokot) 17.2 mg Q12H PRN PO Moderate constipation 10/21/17 21:00 Bisacodyl (Dulcolax Supp) 10 mg DAILY PRN RECTAL SEVERE CONSITIPATION 10/21/17 21:00 Lactulose (Lactulose Liq) 30 ml DAILY PRN PO SEVERE CONSITIPATION 10/21/17 21:00 Acetaminophen (Tylenol) 650 mg Q6H PRN PO headache/fever/pain1-2 10/22/17 16:00 Acetaminophen/ Hydrocodone Bitart ([place] 5-325 Mg) 1 tab Q4H PRN PO PAIN SCALE 3 TO 5 10/22/17 16:00 10/28/17 08:24 Acetaminophen/ Hydrocodone Bitart ([place] 7.5-325 Mg) 1 tab Q4H PRN PO PAIN SCALE 6 TO 10 10/22/17 16:00 10/28/17 01:20 Morphine Sulfate (Morphine Inj) 2 mg Q3H PRN IV PUSH BREAKTHROUGH PAIN 10/22/17 16:00 10/25/17 17:22 Vancomycin HCl 1750 mg/Sodium Chloride 517.5 ml @ 250 mls/hr Q12H IV 10/26/17 22:00 10/28/17 10:30 OBJECTIVE: Vital Signs Date Time Temp Pulse Resp B/P (MAP) Pulse Ox O2 Delivery O2 Flow Rate FiO2 10/28/17 08:16 97.7 48 20 117/59 (78) 98 10/28/17 04:00 98.0 46 18 126/60 (82) 96 10/28/17 00:00 97.9 58 18 125/84 (98) 97 10/27/17 20:00 97.1 46 18 129/60 (83) 98 10/27/17 16:00 98.6 56 18 119/68 (85) 97 10/27/17 12:00 98.5 56 18 121/70 (87) 98 Laboratory Tests Test 10/27/17 07:49 Creatinine 0.94 MG/DL Estimat Glomerular Filtration Rate 90 ML/MIN IMAGING: Hand MRI 10/22/17 0000 Signed Impressions: Service Date/Time: Sunday, October 22, 2017 08:05 - CONCLUSION: 1. Diffuse nonspecific soft tissue swelling and edema are gone along the dorsum of the hand and wrist. This is characteristic of prominent cellulitis. There is a complex fluid collection measuring 2.6 x 1.5 cm on the dorsum of the wrist level. This is suggestive of a soft tissue abscess. 2. There is normal signal within the bony structures. There is no evidence to suggest osteomyelitis. Jim Eduardo MD Radius/Ulna X-Ray 10/21/17 Signed Impressions: Service Date/Time: Saturday, October 21, 2017 14:48 - CONCLUSION: Unremarkable examination of the left forearm. Maximus Ulloa Jr., MD Hand X-Ray 10/21/17 Signed Impressions: Service Date/Time: Saturday, October 21, 2017 14:50 - CONCLUSION: 1. Dorsal soft tissue swelling. Maximus Ulloa Jr., MD PHYSICAL EXAMINATION: GENERAL: No acute distress. Awake, alert and oriented. HEENT: No icterus. No conjunctival erythema, Oropharynx, moist mucosa without lesions. NECK: Supple without adenopathy. LUNGS: Clear breath sounds. HEART: Regular rate and rhythm without murmurs, rubs, or gallops. ABDOMEN: Bowel sounds present, soft, no tenderness appreciated. EXTREMITIES: The left arm has sutures at the distal forearm. No erythema. No swelling. SKIN: No diffuse rash. NEUROLOGIC: No gross focal findings. PSYCHIATRIC: Calm and cooperative. IMPRESSION: Left wrist abscess following trauma from fall onto gravel. Status post I and D. One blood culture has gram-positive cocci with mixed bacteria which reflects contamination. RECOMMENDATIONS: 1. Stop vancomycin. 2. Stop piperacillin/tazobactam. Give 10 days more of p.o. doxycycline. Okay to discharge from my standpoint. Discussed with Dr. Epstein. Royal Caro MD Oct 28, 2017 10:55
[2017-10-28] MEDS ORDERED: DOXY100C PO (11:30)
--- NOTE | 2017-10-28 11:31 | HHI.DS ---
Discharge Summary Admission Date Oct 21, 2017 at 20:56 Discharge Date: Oct 28, 2017 Admitting Diagnosis Left forearm and hand cellulitis (1) Abscess of left hand ICD Code: L02.512 - Cutaneous abscess of left hand Diagnosis: Principal Procedures Incision and drainage deep abscess left wrist and forearm involving the extensor tendon sheaths of the left wrist. Brief History - From Admission 37-year-old male with no significant past medical history presents to the emergency department for evaluation of left handed pain and swelling. The patient reports that the swelling and redness began around his left wrist on Saturday and has been progressively worsening since that time. He is able to flex all 5 digits but has difficulty bending at the wrist secondary to swelling and pain. He denies any fever/chills. Denies chest pain or shortness of breath. No nausea/vomiting/diarrhea. No cough or congestion. Patient denies any recent trauma to the area or IV drug use. CBC/BMP: 10/27/17 0749 Significant Findings Laboratory Tests Test 10/26/17 07:15 10/27/17 07:49 10/28/17 10:00 Vancomycin Level Trough 22.8 MCG/ML (5.0-10.0) 10.6 MCG/ML (5.0-10.0) Imaging Last Impressions Hand MRI 10/22/17 0000 Signed Impressions: Service Date/Time: Sunday, October 22, 2017 08:05 - CONCLUSION: 1. Diffuse nonspecific soft tissue swelling and edema are gone along the dorsum of the hand and wrist. This is characteristic of prominent cellulitis. There is a complex fluid collection measuring 2.6 x 1.5 cm on the dorsum of the wrist level. This is suggestive of a soft tissue abscess. 2. There is normal signal within the bony structures. There is no evidence to suggest osteomyelitis. Jim Eduardo MD Radius/Ulna X-Ray 10/21/17 0000 Signed Impressions: Service Date/Time: Saturday, October 21, 2017 14:48 - CONCLUSION: Unremarkable examination of the left forearm. Maximus Ulloa Jr., MD Hand X-Ray 3/5/18 0000 Signed Impressions: Service Date/Time: Saturday, October 21, 2017 14:50 - CONCLUSION: 1. Dorsal soft tissue swelling. Maximus Ulloa Jr., MD PE at Discharge GENERAL: This is a well-nourished, well-developed patient, in no apparent distress. CARDIOVASCULAR: Regular rate and regular rhythm without murmurs, gallops, or rubs. RESPIRATORY: Clear to auscultation. Breath sounds equal bilaterally. No wheezes , rales, or rhonchi. GASTROINTESTINAL: Abdomen soft, non-tender, nondistended. Normal, active bowel sounds MUSCULOSKELETAL: left forearm covered with clean dressing. NEURO: Alert & Oriented x4 to person, place, time, situation. Moves all ext x4 Hospital Course Deep abscess left wrist and forearm involving the extensor tendon sheaths of the left wrist status post incision and drainage. Denies IVDA. UDS negative -Blood and wound cultures NGTD -treated with antibiotics with IV Vanco/Zosyn -Pain control with Lee prn, IV morphine prn breakthrough pain -Wound care per hand surgery. -ID following. Sinus bradycardia, history of. Asymptomatic. EKG sinus bradycardia without blocks. DVT Prophylaxis: teds/SCDs, ambulation Pt Condition on Discharge: Good Discharge Disposition: Discharge Home Discharge Time: <= 30 minutes Discharge Instructions DIET: Follow Instructions for: As Tolerated, No Restrictions Janee Phelps MD Oct 28, 2017 11:31
== END 2017-10-28 12:18 | disposition home or self-care (01) | DRG 989 ==
LOC: NEPD 13:52 → NEDA 20:56 → NEPHCDU 21:29 → N07B 10-23 16:36 → NEPHCDU 10-23 19:33 → N05B 10-25 20:00
PROVIDERS: ADMIT Internal Medicine; ATTEND Internal Medicine
PROC: 0L9 Tendons, Drainage (ICD-10-PCS; principal; 2017-10-24)
DX: L03.114 Cellulitis of left upper limb (principal); R00.1 Bradycardia, unspecified; L02.414 Cutaneous abscess of left upper limb; R55 Syncope and collapse; B96.89 Other specified bacterial agents as the cause of diseases classified elsewhere
CPT/HCPCS: 73090; 73130; 73220; 80048; 80202; 80307; 82565; 83605; 83735; 84155; 85025; 85610; 87015; 87040; 87070; 87076; 87102; 87116; 87205; 87206; 93005; A9579; J2250; J2270; J2405; J2543; J3010; J3370; J7030; J7040

== ENCOUNTER 2017-11-04 12:16 | Emergency (ER) | payer SELFPAY ==
[~2017-11-04 12:16] MED LIST changes: -BIOFREEZE TOPICAL; -CYCL-36 PO; -DARV PO; +DOXY100C PO; -IBUP100S PO; -LORT7.5T3 PO; -MELO15TA2 PO
[2017-11-04 12:37] VITALS: BP 156/92; PULSE 85; RESP 18; TEMP 97.7; O2SAT 97
--- NOTE | 2017-11-04 13:13 | RADRPT ---
EXAM DATE/TIME: 11/04/2017 13:01 [facility] COMPARISON: No previous studies available for comparison. INDICATIONS : Patient states chest pain after fall. MEDICAL HISTORY : None. SURGICAL HISTORY : None. ENCOUNTER: Initial ACUITY: 2 days PAIN SCORE: 8/10 LOCATION: Bilateral chest FINDINGS: PA and lateral views of the chest demonstrate the lungs to be symmetrically aerated without evidence of mass, infiltrate or effusion. The cardiomediastinal contours are unremarkable. Osseous structure s are intact. CONCLUSION: Normal examination for a patient of this age. Jim Eduardo MD on November 04, 2017 at 13:10 Board Certified Radiologist. This report was verified electronically.
[2017-11-04] MEDS ORDERED: DICL75TA PO (14:52)
[2017-11-04] MEDS ORDERED: HYDR-3516 PO (14:52)
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
[2017-11-04] MEDS ORDERED: ACETAMINOPHEN/HYDROcodone 325 MG/10 MG TAB PO ONE (15:00)
[2017-11-04] MEDS ORDERED: KETOROLAC TROMETHAMINE 60 MG/2 ML (IM) VIAL IM ONE (15:00)
== END 2017-11-04 15:20 | disposition home or self-care (01) ==
LOC: NED 12:16 → NEPA 15:20
DX: S20.219A Contusion of unspecified front wall of thorax, initial encounter (principal); S20.211A Contusion of right front wall of thorax, initial encounter; V19.3XXA Pedal cyclist (driver) (passenger) injured in unspecified nontraffic accident, initial encounter; Y93.55 Activity, bike riding
CPT/HCPCS: 71046; 96372; 99283; J1885